=== PATIENT | female | born 1965 | race Caucasian/White ===

== ENCOUNTER → 2017-05-15 12:19 | Outpatient (CLI) | payer OTHER, SELFPAY ==
[2017-05-15 12:40] LABS: Basophils # 0.1 K/mm3 (0-0.2); Basophils % 0.4 % (0.1-2.0); Eosinophils # 0.2 K/mm3 (0.0-0.4); Eosinophils % 1.2 % (0.1-12.0); Hematocrit 32.6 % (37.0-47.0); Lymphocytes # 1.9 K/mm3 (0.7-4.5); Lymphocytes % 13.8 K/mm3 (10-50); Mean Corpuscular HGB Conc 30.8 g/dL (31.8-35.4); Mean Corpuscular Hemoglobin 24.9 pg (27.0-31.2); Mean Corpuscular Volume 80.7 fl (81-99); Mean Platelet Volume 6.8 fl (7.4-10.4); Monocytes # 0.6 K/mm3 (0.1-1.0); Monocytes % 4.3 % (1.7-9.3); Neutrophils % 80.3 % (37.0-80.0); Platelet Count 349 K/mm3 (142-424); Red Blood Count 4.04 M/mm3 (4.20-5.40); Red Cell Distribution Width 17.2 % (11.5-17.5); White Blood Count 13.7 K/mm3 (4.8-10.8)
--- NOTE | 2017-05-15 12:46 | XR_ITS ---
XR chest 2V HISTORY: ITS.REASON: SMOKER, HTN ORDERING PHYSICIAN: Jefferson Blackburn MD PATIENT AGE: 52 years COMPARISON: 10/24/2015 FINDINGS: There has been prior median sternotomy. Mild patient rotation. No lobar consolidation or collapse. Normal heart size. No acute bony findings. IMPRESSION: Prior CABG, no change with no acute finding
[2017-05-15 14:03] LABS: Anion Gap 15.6 mEq/L (5-15); Blood Urea Nitrogen 26 mg/dL (7-18); Carbon Dioxide 23 mmol/L (21.0-32.0); Chloride 102 mmol/L (98-107); Creatinine,Serum 1.27 mg/dL (0.55-1.02); Estimated Glomerular Filt Rate 45 ml/min (>60); GFR (African American) 54 ML/MIN (>60); Glucose 222 mg/dL (74-106); Potassium 4.6 mmoL/L (3.5-5.1); Sodium 136 mmol/L (136-145)
== END ==
PROVIDERS: PCP Emergency Medicine; Visit Provider Orthopaedic Surgery
DX: M86.9 Osteomyelitis, unspecified (principal); Z01.818 Encounter for other preprocedural examination
CPT/HCPCS: 36415; 71046; 80048; 85025; 93005

== ENCOUNTER 2017-05-20 11:01 | Inpatient (IN) | payer OTHER, SELFPAY ==
[2017-05-15 13:08] VITALS: BMI 40.2
[2017-05-20] VITALS (21 sets, daily range): BP systolic 100–159; BP diastolic 42–87; PULSE 75–111; RESP 15–22; TEMP 36.7–43; O2SAT 90–100; BMI 49.9
[2017-05-20 11:27] LABS: Urine Pregnancy, HCG Qual. Negative (Negative)
[2017-05-20 12:14] LABS: POC Glucose,Bedside 79 mg/dL
--- NOTE | 2017-05-20 12:49 | HMH.ANESCL ---
[facility] Anesthesia Checklist - Structural Data Admitted From: Home Planned Operative Procedure/s: l aka Consent for Planned Operative Procedure(s) Verified: Yes Verified Documents: Surgical Consent - Airway Assessment C-Spine Mobility Assessed: Yes TMJ Mobility Assessed: Yes Dentition: Poor Dentition - Neurological Assessment Level of Consciousness: Awake, Alert Hx Seizures: No - Anesthesia Plan Anesthesia Risk discussed: Yes Anesthesia Plan: Verified ASA Class: IV Anesthesia Type: General [facility] Anesthesia HX I have reviewed the patient's past medical history: Yes Medical History: Reports:: Chronic Obstructive Pulmonary Disease (COPD), Coronary Artery Disease, Diabetes Mellitus Type 2 (IDDM), Hyperlipidemia, Hypertension, MRSA, Myocardial Infarction, Renal Disease, Renal Insufficiency, Valvular Heart Disease Denies:: Cancer, Diabetes Mellitus Type 1, Internal Pacemaker, Seizures Other Medical History: Denies: Blood Transfusion Reaction Laterality Cases: Bilateral: Other Other Surgeries: Yes: Angioplasty, Coronary Stent, Other. No: Pacemaker Amputation: Yes (1/2 foot) Fractures: No Comment: cabg 2011, stents x 2 4 months ago. cleared for surgery by Dr Henry *Family Hx:: Stroke, Hypertension, Diabetes, Cancer, Kidney Disease, Anemia, Bleeding Disorder
--- NOTE | 2017-05-20 12:52 | P.PN_ITS ---
[facility] Anesthesia Checklist - Structural Data Admitted From: Home Planned Operative Procedure/s: l aka Consent for Planned Operative Procedure(s) Verified: Yes Verified Documents: Surgical Consent - Airway Assessment C-Spine Mobility Assessed: Yes TMJ Mobility Assessed: Yes Dentition: Poor Dentition - Neurological Assessment Level of Consciousness: Awake, Alert Hx Seizures: No - Anesthesia Plan Anesthesia Risk discussed: Yes Anesthesia Plan: Verified ASA Class: IV Anesthesia Type: General [facility] Anesthesia HX I have reviewed the patient's past medical history: Yes Medical History: Reports:: Chronic Obstructive Pulmonary Disease (COPD), Coronary Artery Disease, Diabetes Mellitus Type 2 (IDDM), Hyperlipidemia, Hypertension, MRSA, Myocardial Infarction, Renal Disease, Renal Insufficiency, Valvular Heart Disease Denies:: Cancer, Diabetes Mellitus Type 1, Internal Pacemaker, Seizures Other Medical History: Denies: Blood Transfusion Reaction Laterality Cases: Bilateral: Other Other Surgeries: Yes: Angioplasty, Coronary Stent, Other. No: Pacemaker Amputation: Yes (1/2 foot) Fractures: No Comment: cabg 2011, stents x 2 4 months ago. cleared for surgery by Dr Henry *Family Hx:: Stroke, Hypertension, Diabetes, Cancer, Kidney Disease, Anemia, Bleeding Disorder
--- NOTE | 2017-05-20 16:45 | HMH.ANESI ---
[facility] Anesthesia Record Part I Intake, IV Amount: 1,000 Estimated blood loss (mL): 400 Urine output (mL): 200 Blood Products used (#): none Blood Pressure: 112/66 SaO2: 90 Pulse Rate: 111 Respiratory Rate: 18 Temperature: 98.7 F Patient is:: Awake, Stable Stable to PACU at:: 16:45
--- NOTE | 2017-05-20 16:47 | P.PN_ITS ---
[facility] Anesthesia Record Part II Discharge Time: 17:15 Destination: Medical Surgical Department PACU nurse assessment reviewed?: Yes Patient Condition:: Good Anesthesia Complications:: None
--- NOTE | 2017-05-20 18:23 | PC.NURSE ---
verified start of HIGH SCHOOL COMBINATION TEACHER pump with Ana Maria Pulido RN
--- NOTE | 2017-05-20 19:13 | PC.NURSE ---
Pt c/o pain at 7 afterr 1 hour on WINDOW SHADE RING COVERER pump, Peewee stated to leave WINDOW SHADE RING COVERER at current rate and reassess later and add PO pain medicine
--- NOTE | 2017-05-20 23:29 | PC.NURSE ---
Dr Vides paged r/t pt increase in pain with no relief of ICE HOCKEY COACH, oral pain medication or IV toradol. had recently called this nurse @ 2019 to check on pt and told of pt increase in pain and gave order for 30 mg toradol IVP once, Peewee told of this conversation with and stated he doesnt know much about the pt to paged Dr. Vazquez. No new orders given at this time.
--- NOTE | 2017-05-20 23:34 | PC.NURSE ---
notified at 2224 of pt increase pain r/t surgical procedure early today. Vazquez gave order for boosting dose of morphine 2mg now via HABILITATION TRAINING SPECIALIST and increase dosage of morphine via HABILITATION TRAINING SPECIALIST to 1mg Q10min for pain. Read back and confirmed.
[2017-05-21] VITALS (12 sets, daily range): BP systolic 97–133; BP diastolic 45–73; PULSE 63–94; RESP 16–22; TEMP 36.6–37.3; O2SAT 92–98
--- NOTE | 2017-05-21 03:39 | PC.NURSE ---
Pt has c/o pain t/o the shift with internet of sleep in-between. Since increasing MACHINE ICER rate per MD order pt states the pain is better. Pt is very restless and constanting moving up and down in the bed and moving the amputated lag, pt advise to take it easy and move it ASTOL. VSS. Pt concerned that she hasnt had to pee since surgery, advise pt that we will attempted to urinate before shift change. SCUD noted to LLE. Dressing noted to R knee, unable to visualize incision, no edema or bleeding noted, zachery wrap in place. BS hypoactive, LBM 05/19/17. Lung sounds clear t/o auscultation. A&Ox3. No acute distress noted. Will continue to monitor.
--- NOTE | 2017-05-21 05:12 | PC.NURSE ---
Pt got up to BSC x2 assistance and tolerated well. Urinated 150mL of clear yellow urine
--- NOTE | 2017-05-21 05:20 | PC.NURSE ---
24 cleared from JACQUARD LOOM FIXER this shift(s)
--- NOTE | 2017-05-21 06:50 | SUR.OPER ---
05/20/17-1316- pt c/o stomach pain upon entering OR. Pt states that pain happens when she doesn't drink .
--- NOTE | 2017-05-21 07:29 | P.CONPHA_ITS ---
[facility] Pharmacy VTE Monitoring - Patient Demographics Admission date: 05/20/17 Report Date: 05/21/17 Time: 07:29 Allergies/Adverse Reactions: Patient Allergies acetaminophen [From Darvocet-N] Allergy (Unknown, Verified 05/15/17 13:04) Vomiting amoxicillin [From AUGMENTIN] Allergy (Unknown, Verified 05/15/17 13:04) clavulanic acid [From AUGMENTIN] Allergy (Unknown, Verified 05/15/17 13:04) codeine [CODEINE] Allergy (Unknown, Verified 05/15/17 13:04) NA-NAUSEA/VOMITING erythromycin base [ERYTHROMYCIN BASE] Allergy (Unknown, Verified 05/15/17 13:04) Vomiting Penicillins [PENICILLINS] Allergy (Unknown, Verified 05/15/17 13:04) Hives, Vomiting propoxyphene [From Darvocet-N] Allergy (Unknown, Verified 05/15/17 13:04) Vomiting CEPHALOSPORINS Allergy (Unknown, Uncoded 05/15/17 11:48) Anaphylaxis shock Height: 1.57 m Weight: 123.916 kg - VTE Risk Was VTE Risk Assessment Performed: Yes VTE Risk Level: Low Risk Clinical Trial Participant: No - Prophylaxis VTE Prophylaxis Ordered?: Yes Types of VTE Prophylaxis: TEDS Knee High
--- NOTE | 2017-05-21 08:58 | PC.NURSE ---
REPORT GIVEN TO Dank BRO RN
--- NOTE | 2017-05-21 09:45 | HMH.PHACONS ---
- Pharmacy Consult Date: 05/21/17 Time: 09:45 Referring provider: DR. YEH Reason for Consult:: VANCOMYCIN DOSING Allergies and ADEs:: Allergies Allergy/AdvReac Type Severity Reaction Status Date / Time acetaminophen Allergy Unknown Vomiting Verified 05/15/17 13:04 [From Darvocet-N] amoxicillin [From AUGMENTIN] Allergy Unknown Verified 05/15/17 13:04 clavulanic acid Allergy Unknown Verified 05/15/17 13:04 [From AUGMENTIN] codeine [CODEINE] Allergy Unknown NA-NAUSEA/V Verified 05/15/17 13:04 OMITING erythromycin base Allergy Unknown Vomiting Verified 05/15/17 13:04 [ERYTHROMYCIN BASE] Penicillins [PENICILLINS] Allergy Unknown Hives, Verified 05/15/17 13:04 Vomiting propoxyphene Allergy Unknown Vomiting Verified 05/15/17 13:04 [From Darvocet-N] CEPHALOSPORINS Allergy Unknown Anaphylaxis Uncoded 05/15/17 11:48 shock Home Medications:: Home Medications Medication Instructions Recorded Confirmed Type aspirin 81 mg tablet,delayed 81 mg PO DAILY 04/05/17 05/21/17 History release clopidogrel 75 mg tablet 75 mg PO DAILY 04/05/17 05/21/17 History digoxin 125 mcg tablet 125 mcg PO DAILY 04/05/17 05/21/17 History furosemide 40 mg tablet 40 mg PO DAILY 04/05/17 05/21/17 History insulin glargine (U-100) 100 See Label Instructions SUB-Q QDAY 04/05/17 05/20/17 History unit/mL (3 mL) subcutaneous pen insulin lispro (U-100) 100 unit/mL See Label Instructions SUB-Q BID 04/05/17 05/20/17 History subcutaneous solution ml lisinopril 10 mg tablet 10 mg PO DAILY 04/05/17 05/21/17 History metoprolol tartrate 25 mg tablet 25 mg PO BID 04/05/17 05/20/17 History Gabapentin [Neurontin 600mg 600 mg PO TID 05/21/17 05/21/17 History tablet] Height: 1.57 m Weight: 123.916 kg Laboratory Results:: Laboratory Results - last 24 hr 05/20/17 11:12: Urine HCG, Qual Negative 05/20/17 11:32: POC Glucose 79 Medical History: Reports:: Chronic Obstructive Pulmonary Disease (COPD), Coronary Artery Disease, Diabetes Mellitus Type 2 (IDDM), Hyperlipidemia, Hypertension, MRSA, Myocardial Infarction, Renal Disease, Renal Insufficiency, Valvular Heart Disease Denies:: Cancer, Diabetes Mellitus Type 1, Internal Pacemaker, Seizures Assessment and Plan - Assessment and plan all Dx Assessment and Plan for all problems:: BASED ON PATIENT'S FACTORS, RECOMMEND STARTING WITH VANCOMYCIN 2250 MG Q24H AT THIS TIME. PHARMACY WILL FOLLOW DAILY AND ADJUST APPROPRIATE. BETTY SINGH, ISIDRAD
--- NOTE | 2017-05-21 10:20 | PC.NURSE ---
dr coburn contacted at this time. i advised md that pt reports she does achs fingersticks and insulin. okays to change to achs. also asks to order a consult to pt's pcp and states if pt does not have a pcp within the network at [facility], to ask the service doctor.
[2017-05-21 11:26] LABS: POC Glucose,Bedside 267 mg/dL
[2017-05-21 11:26] LABS: POC Glucose,Bedside 331 mg/dL
[2017-05-21 12:26] LABS: POC Glucose,Bedside 266 mg/dL
--- NOTE | 2017-05-21 13:22 | P.OP_ITS ---
Date of procedure: 05/20/17 Pre-op Diagnosis:: Right lower extremity chronic infection Diabetes mellitus peripheral vascular disease Obesity Post-op diagnosis:: same Procedure performed:: Below-knee amputation right lower extremity Surgeon:: Jefferson Blackburn MD CARD GRINDER HELPER:: Luis Conroy Anesthesia: GETA Estimated blood loss (mL): 350 Operative findings:: See operative note Operative note:: The patient was taken to the operating room and placed in the supine position and given a general anesthetic. The infected foot and ankle was wrapped with Ioban and sealed. The right extremity was prepped chlorhexidine. Limb was exsanguinated and a tourniquet inflated. This was a thigh tourniquet and it was inflated to 325 torr. A Navarrete type incision was planned and drawn on the limb to allow bone transection approximate 10 cm below the tibial tubercle. The skin was incised anteriorly and bleeding arrested with electrocautery. As we encountered larger vessels, these were tied with 2-0 silk ligatures. As copious bleeding was encountered, and as the nursing staff reported a tourniquet issue, we deflated the tourniquet, re-exsanguinated the limb, reinflated the tourniquet to 350 torr, and using a different side of the tourniquet dual inflation console, reinflated the tourniquet. We continued with the incisions and hemostasis but still encountered more copious bleeding than expected. Note is made that the patient had been on Plavix but did indeed report she had been off for some 6 days. We suspected the tourniquet was in fact acting more as a venous tourniquet and thus deflated it and proceeded without tourniquet. We encountered no more bleeding and with the tourniquet itself inflated. We encountered the anterior and posterior tibial vessels including arteries and veins, the saphenous vein, the peroneals, and tied and ligated vessels as encountered. This achieved excellent hemostasis. We transected the tibia with a Gigli saw and then contoured it with an oscillating saw. The fibula was transected using an oscillating saw with soft tissue retraction and beveled. It was transected approximately 2 cm above the distal tibia. All sharp edges were rounded. We then removed a portion of the soleus muscle to debulk the posterior flap. We performed irrigation and also utilize a dilute iodine solution for minutes as the nursing staff reported they had not prepped over the Ioban. New drapes were laid down and closure begun. The gastrocnemius complex was sutured to the anterior periosteum using #1 Vicryl [id number] sutures. We completed the closure laterally and medially fashion the fascia muscle the muscle using similar technique. 2-0 Vicryl was used for the subcutaneous tissue and a combination of 2-0 nylon sutures and molina used for the skin. We deliberately did not contour dogears so as not to compromise the skin with her peripheral vascular disease. We applied dressings, and follow this with an elastic bandage. The patient was then awakened and transported to the recovery room in satisfactory condition. Condition: stable Disposition: PACU Specimens:: Lower extremity Complications:: None
--- NOTE | 2017-05-21 13:30 | HMH.ORTHPN ---
Subjective Date: 05/21/17 Time: 09:24 Principal diagnosis: Status post right BKA, POD #1 Interval history: Patient underwent right BKA yesterday. She initially had some pain control issues but was finally satisfactory control with increase in MOLD SWABBER dosage, use of morphine injection booster dose, and use of ketorolac IV. Today, her vital signs are stable she is afebrile. Pulse is 84 blood pressure stable. Her dressing is clean and dry with no evidence of bleed through. No evident complications noted. PN: Obj Ex Vital signs: Temp Pulse Resp BP Pulse Ox 97.8 F 84 16 97/63 94 L 05/21/17 12:00 05/21/17 12:00 05/21/17 12:00 05/21/17 12:00 05/21/17 12:00 Narrative: PLAN--up with physical therapy today. Transition to oral medications. Patient will need placement at a rehab center more than likely.
--- NOTE | 2017-05-21 13:33 | P.PN_ITS ---
Subjective Date: 05/21/17 Time: 09:24 Principal diagnosis: Status post right BKA, POD #1 Interval history: Patient underwent right BKA yesterday. She initially had some pain control issues but was finally satisfactory control with increase in ELECTRONIC DIE MAKER dosage, use of morphine injection booster dose, and use of ketorolac IV. Today, her vital signs are stable she is afebrile. Pulse is 84 blood pressure stable. Her dressing is clean and dry with no evidence of bleed through. No evident complications noted. PN: Obj Ex Vital signs: Temp Pulse Resp BP Pulse Ox 97.8 F 84 16 97/63 94 L 05/21/17 12:00 05/21/17 12:00 05/21/17 12:00 05/21/17 12:00 05/21/17 12:00 Narrative: PLAN--up with physical therapy today. Transition to oral medications. Patient will need placement at a rehab center more than likely.
--- NOTE | 2017-05-21 17:05 | SW/DCPLANNER ---
Spoke with patient this evening regarding discharge plans. Patient stated that she lives at home with her significant other whom will help care for patient once she returns back home. Patient appears to be confused about whether or not if she wants home health due to her S.O. working an evening shift and being home during the day. I explained to the patient the benefits of using home health in her situation. Patient then agreed to home health but would need to discuss with them regarding a time to come out. I explained to patient that I will assist in setting up home health but home health would then set up time with patient. Patient stated that she is fine to discharge home to take care of herself. Patient stated that she does have a wheelchair at home. I will follow up with this patient in the AM.
--- NOTE | 2017-05-21 17:39 | PC.NURSE ---
PT FALLS ON FLOOR TODAY AT 1340. NOISE HEARD FROM WASHBURN. IMMEDIATELY RAN INTO THE ROOM TO FIND PT ON THE FLOOR ON BUTTOCKS. PT REPORTS THAT HER CELLPHONE WAS FALLING OF THE BEDSIDE TABLE AND SHE LEANED TO CATCH IT FROM FALLING AND SHE SLID IN THE CHAIR STRAIGHT TO THE FLOOR. DENIES ANY INJURIES. NO NEW FINDINGS NOTED ON ASSESSMENT. VSS. PT DENIES AND NEW PAINS. PT DISLODGES TWO IVs THIS SHIFT. EDUCATED TO BE CAREFUL BECAUSE IT IS DANGEROUS TO HAVE IVs TAKEN OUT/PULLED OUT.
--- NOTE | 2017-05-21 19:42 | PC.NURSE ---
pt uses 13.8ml of morphine via optometrist owner this shift
[2017-05-22] VITALS (15 sets, daily range): BP systolic 90–115; BP diastolic 44–60; PULSE 75–99; RESP 16–18; TEMP 36.6–38.8; O2SAT 90–98; BMI 50.3
[2017-05-22 01:05] LABS: POC Glucose,Bedside 229 mg/dL
[2017-05-22 01:05] LABS: POC Glucose,Bedside 219 mg/dL
--- NOTE | 2017-05-22 02:28 | PC.NURSE ---
RN NOTIFIED AROUND 0130 OF ORAL TEMP NOTED AT 101.8. MD RESUME WRITER FOR DR. STEEN PAGED AT 0153. DR. STEEN RESPONDED AT 0156, NOTIFIED OF TEMP OF 101.8, ALL OTHER VS WNL. MD INSTRUCTED RN TO PLACE INCENTIVE SPIROMETER AT BEDSIDE AND USE Q1H WHILE AWAKE, ORDER CBC AND BMP FOR 0600 IN THE MORNING.
--- NOTE | 2017-05-22 02:33 | PC.NURSE ---
AROUND 2099 OPERATIONS CONSULTANT CALLED TO ELEN POWERS CHIEF PROCUREMENT OFFICER FOR [facility]ERY, OPERATIONS CONSULTANT STATED DR. GOTTLIEB IS CHIEF PROCUREMENT OFFICER FOR HIMSELF AND IS IN THE ER, WOULD YOU LIKE ME TO TRANSFER YOU TO THE ED. RN ACCEPTED OFFER TO TRANSFER TO ED, ONCE MD CONTACTED, STATED LET ME CALL YOU BACK. NO RESPONSE, AROUND 2234 RN CALLED ED AGAIN TO NOTIFY MD OF PREMIX CONCRETE BATCHER INTOLERANCE AND C/O NOT PEEING VERY MUCH . MD WAS NOTIFIED OF FALL ON DAY SHIFT AND MAKING INAPPROPRIATE CONVERSATION. ON THIS SENIOR RESEARCH MANAGER AROUND 1999, PT A&OX3, NO S/S OF RESPIRATORY DEPRESSION, NO INAPPROPRIATE STATEMENTS MADE THUS FAR AND NOTIFIES STAFF APPROPRIATELY. PREMIX CONCRETE BATCHER PUMP WAS CLEARED PER DAY SHIFT AND AT THIS TIME, PT HAS NOT USED ANY SINCE LAST CLEARED. DAY SHIFT RN REPORTED CLEARING AROUND 13MG. MD ORDERED PREMIX CONCRETE BATCHER MORPHINE DOSE TO BE DECREASED TO 0.5 MG Q1O MIN WITH A LOCKOUT AT 10 MG Q4H. MD ALSO NOTIFIED OF C/O NOT PEEING VERY MUCH . 400ML UOP WITH A ONE UNMEASURED VOID NOTED, REPORTS HX OF CHF. LUNG SOUNDS CLEAR T/O AUSCULTATION. LOWER EXTREMITY SWOLLEN BUT NONPITTING. BLADDER DID NOT FEEL DISTENDED PER PALPATION. MD ORDERED 500ML LR IVF BOLUS AT A RATE OF 250 ML/HR.
--- NOTE | 2017-05-22 02:49 | PC.NURSE ---
Addendum entered by Margot Lorenz RN 05/22/17 04:07: DID MAKE A FEW INAPPROPRIATE STATEMENTS THIS SHIFT BUT SOON PT WOULD MAKE INAPPROPRIATE STATEMENT, PT WOULD STATE DON'T LISTEN TO ME. I AM TALKING OUT OF MY HEAD. BUT REMAINED A&OX3 T/O SHIFT. Original Note: RESTED WELL MAJORITY OF SHIFT. PT WOULD WAKE UP OCCASSIONALLY MOANING, STAFF REMINDED PT OF OVERHAULER HELPER PUMP USE, FOLLOWING USE OF OVERHAULER HELPER, PT NOTED SLEEPING AGAIN. INCENTIVE SPIROMETER PLACED AT BEDSIDE. DRESSING ON RLE NOTED CDI. VSS. WILL CONTINUE TO MONITOR.
--- NOTE | 2017-05-22 04:06 | PC.NURSE ---
CLEARED FITNESS COORDINATOR PUMP AT THIS TIME, 2.5MG USED THIS SHIFT.
[2017-05-22 06:47] LABS: POC Glucose,Bedside 215 mg/dL
[2017-05-22 06:58] LABS: Basophils % 0.4 % (0.1-2.0); Eosinophils # 0.3 K/mm3 (0.0-0.4); Eosinophils % 2.5 % (0.1-12.0); Lymphocytes # 1.5 K/mm3 (0.7-4.5); Lymphocytes % 13.6 K/mm3 (10-50); Mean Corpuscular HGB Conc 31.6 g/dL (31.8-35.4); Mean Corpuscular Hemoglobin 25.5 pg (27.0-31.2); Mean Corpuscular Volume 80.6 fl (81-99); Mean Platelet Volume 7.2 fl (7.4-10.4); Monocytes # 0.5 K/mm3 (0.1-1.0); Monocytes % 4.3 % (1.7-9.3); Neutrophils # 8.8 K/mm3 (1.8-7.8); Neutrophils % 79.3 % (37.0-80.0); Platelet Count 368 K/mm3 (142-424); Red Blood Count 2.87 M/mm3 (4.20-5.40); Red Cell Distribution Width 17.4 % (11.5-17.5); White Blood Count 11.1 K/mm3 (4.8-10.8)
[2017-05-22 07:04] LABS: Hematocrit 23.1 % (37.0-47.0); Hemoglobin 7.3 g/dL (12.2-16.2)
--- NOTE | 2017-05-22 08:02 | PC.NURSE ---
DR. STEEN NOTIFIED OF CRITICAL HEMOGLOBIN OF 7.3 AND HEMATOCRIT OF 23.1 AT 0710
[2017-05-22 08:23] LABS: Blood Urea Nitrogen 40 mg/dL (7-18); Carbon Dioxide 25 mmol/L (21.0-32.0); Chloride 96 mmol/L (98-107); Creatinine Clearance Estimated 22 mL/min (0-300); Creatinine,Serum 2.43 mg/dL (0.55-1.02); Estimated Glomerular Filt Rate 21 ml/min (>60); GFR (African American) 25 ML/MIN (>60); Glucose 193 mg/dL (74-106); Sodium 129 mmol/L (136-145)
--- NOTE | 2017-05-22 10:34 | HMH.ORTHPN ---
Subjective Date: 05/22/17 Time: 09:30 Principal diagnosis: Status post right BKA, POD #2 Interval history: Patient is sleeping but awakens easily. Complains of pain and right BKA stump. I reminded her to go ahead and use the WATER FILTRATION TECHNICIAN. Dressing is changed. Incision clean and essentially dry. No erythema cellulitis or other complications noted. Hemoglobin hematocrit this morning reflective of blood loss intraoperatively. Hematocrits approximately 23.7. Pulse is approximately 85 and blood pressure stable. Patient denies lightheadedness. Given this scenario, no clinical indications for transfusion at present. BMP evaluated. Potassium 5.0. Creatinine BUN are elevated. Will hold off on further use of Toradol due to her renal status. Case discussed with pharmacy and we will make a lateral move to Percocet versus Lortab for hopefully increased pain control. PN: Obj Ex Vital signs: Temp Pulse Resp BP Pulse Ox 97.8 F 89 18 90/46 92 L 05/22/17 08:00 05/22/17 10:00 05/22/17 10:00 05/22/17 10:00 05/22/17 10:00
--- NOTE | 2017-05-22 10:41 | P.PN_ITS ---
Subjective Date: 05/22/17 Time: 09:30 Principal diagnosis: Status post right BKA, POD #2 Interval history: Patient is sleeping but awakens easily. Complains of pain and right BKA stump. I reminded her to go ahead and use the CONSTRUCTION REPRESENTATIVE. Dressing is changed. Incision clean and essentially dry. No erythema cellulitis or other complications noted. Hemoglobin hematocrit this morning reflective of blood loss intraoperatively. Hematocrits approximately 23.7. Pulse is approximately 85 and blood pressure stable. Patient denies lightheadedness. Given this scenario , no clinical indications for transfusion at present. BMP evaluated. Potassium 5.0. Creatinine BUN are elevated. Will hold off on further use of Toradol due to her renal status. Case discussed with pharmacy and we will make a lateral move to Percocet versus Lortab for hopefully increased pain control. PN: Obj Ex Vital signs: Temp Pulse Resp BP Pulse Ox 97.8 F 89 18 90/46 92 L 05/22/17 08:00 05/22/17 10:00 05/22/17 10:00 05/22/17 10:00 05/22/17 10:00
--- NOTE | 2017-05-22 18:38 | PC.NURSE ---
PT HAS REPORTED PAIN OF 6-7 MOST OF THIS SHIFT, AT TIMES SHE WOULD BE SLEEPING. LOCK TENDER CHIEF OPERATOR PUMP, WELL PRN PAIN MEDICATION GIVEN THIS SHIFT. PT IS IN BED, CALL LIGHT WITHIN REACH, WILL CONTINUE TO MONITOR.
--- NOTE | 2017-05-22 19:32 | PC.NURSE ---
Pt's DONOR SERVICES TECHNICIAN pump was cleared at end of shift, 9.5 doses administered.
[2017-05-23] VITALS (33 sets, daily range): BP systolic 80–136; BP diastolic 35–81; PULSE 64–86; RESP 18–22; TEMP 36.1–37.3; O2SAT 90–99
--- NOTE | 2017-05-23 05:24 | PC.NURSE ---
UPON ASSESSMENT OF PT, SHE WAS NOTE TO BE DIAPHORETIC. PT STATED SHE WAS HOT, GOWN AND BED LINENS WERE SOILED. IV LINE WAS LYING ON BED. BED LINENS WERE CHANGED AND NEW IV PLACED. BP WAS NOTED TO BE 115/54 AFTER REASSESSMENT OF BP, BP MED WAS HELD DUE TO BP OF 102/50. PT HAS SLEPT MOST OF SHIFT. CONTS TO C/O PAIN. WAS EDUCATED AND ENCOURAGE TO USE FIELD INSPECTOR PUMP, HAS DECLINED ADDITIONAL PAIN MEDICATION. PT HAD A TOTAL OF 4.5 MG OF MORPHINE PER FIELD INSPECTOR PUMP. PT HAS ALSO C/O ABD DISCOMFORT. PT HAS AMBULATED WITH ASSISTANCE TO [facility], TOTAL URINE OUTPUT AT THIS TIME IS 300ML. DRESSING IS INTACT RIGHT EXTREMITY, NO DRAINAGE NOTED. ENERGY CONSERVATION ENGINEER PER MAR, VSS AT THIS TIME. NO OTHER CONCERNS AT THIS TIME, WILL CONT TO MONITOR.
--- NOTE | 2017-05-23 07:48 | PC.NURSE ---
REPORT HAND OFF TO PHILLIP
[2017-05-23 09:38] LABS: Vancomycin,Trough 32.5 mcg/ml (10.0-20.0)
--- NOTE | 2017-05-23 10:40 | HMH.PHACONS ---
- Pharmacy Consult Date: 05/23/17 Time: 10:40 Referring provider: DR. YEH Reason for Consult:: VANCOMYCIN TROUGH AND DOSE CHANGE Allergies and ADEs:: Allergies Allergy/AdvReac Type Severity Reaction Status Date / Time acetaminophen Allergy Unknown Vomiting Verified 05/15/17 13:04 [From Darvocet-N] amoxicillin [From AUGMENTIN] Allergy Unknown Verified 05/15/17 13:04 clavulanic acid Allergy Unknown Verified 05/15/17 13:04 [From AUGMENTIN] codeine [CODEINE] Allergy Unknown NA-NAUSEA/V Verified 05/15/17 13:04 OMITING erythromycin base Allergy Unknown Vomiting Verified 05/15/17 13:04 [ERYTHROMYCIN BASE] Penicillins [PENICILLINS] Allergy Unknown Hives, Verified 05/15/17 13:04 Vomiting propoxyphene Allergy Unknown Vomiting Verified 05/15/17 13:04 [From Darvocet-N] CEPHALOSPORINS Allergy Unknown Anaphylaxis Uncoded 05/15/17 11:48 shock Home Medications:: Home Medications Medication Instructions Recorded Confirmed Type aspirin 81 mg tablet,delayed 81 mg PO DAILY 04/05/17 05/21/17 History release clopidogrel 75 mg tablet 75 mg PO DAILY 04/05/17 05/21/17 History digoxin 125 mcg tablet 125 mcg PO DAILY 04/05/17 05/21/17 History furosemide 40 mg tablet 40 mg PO DAILY 04/05/17 05/21/17 History insulin glargine (U-100) 100 See Label Instructions SUB-Q QDAY 04/05/17 05/20/17 History unit/mL (3 mL) subcutaneous pen insulin lispro (U-100) 100 unit/mL See Label Instructions SUB-Q BID 04/05/17 05/20/17 History subcutaneous solution ml lisinopril 10 mg tablet 10 mg PO DAILY 04/05/17 05/21/17 History metoprolol tartrate 25 mg tablet 25 mg PO BID 04/05/17 05/20/17 History Gabapentin [Neurontin 600mg 600 mg PO TID 05/21/17 05/21/17 History tablet] Height: 1.57 m Weight: 123.916 kg Laboratory Results:: Laboratory Results - last 24 hr 05/23/17 09:02: Vancomycin Trough 32.5 H Medical History: Reports:: Chronic Obstructive Pulmonary Disease (COPD), Coronary Artery Disease, Diabetes Mellitus Type 2 (IDDM), Hyperlipidemia, Hypertension, MRSA, Myocardial Infarction, Renal Disease, Renal Insufficiency, Valvular Heart Disease Denies:: Cancer, Diabetes Mellitus Type 1, Internal Pacemaker, Seizures Assessment and Plan - Assessment and plan all Dx Assessment and Plan for all problems:: BASED ON PATIENT'S VANCOMYCIN TROUGH LEVEL OF 32.5 MCG/ML THIS AM, RECOMMEND HOLDING DOSE UNTIL 2100 ON 05/24/17. WILL RESTART VANCOMYCIN 2000 MG Q36H AT THAT TIME. PHARMACY WILL FOLLOW DAILY AND ADJUST APPROPRIATE. BETTY SINGH, PHARMD
[2017-05-23 11:06] LABS: Basophils % 0.2 % (0.1-2.0); Eosinophils # 0.3 K/mm3 (0.0-0.4); Eosinophils % 2.8 % (0.1-12.0); Lymphocytes # 1.5 K/mm3 (0.7-4.5); Lymphocytes % 13.6 K/mm3 (10-50); Mean Corpuscular HGB Conc 31.1 g/dL (31.8-35.4); Mean Corpuscular Volume 80.4 fl (81-99); Mean Platelet Volume 7.5 fl (7.4-10.4); Monocytes # 0.6 K/mm3 (0.1-1.0); Monocytes % 5.4 % (1.7-9.3); Neutrophils # 8.7 K/mm3 (1.8-7.8); Platelet Count 337 K/mm3 (142-424); Red Blood Count 2.53 M/mm3 (4.20-5.40); Red Cell Distribution Width 17.4 % (11.5-17.5); White Blood Count 11.2 K/mm3 (4.8-10.8)
[2017-05-23 11:09] LABS: Hematocrit 20.3 % (37.0-47.0); Hemoglobin 6.3 g/dL (12.2-16.2)
--- NOTE | 2017-05-23 11:26 | HMH.ORTHPN ---
Subjective Date: 05/23/17 Time: 11:26 Principal diagnosis: Status post right BKA, POD #3 Interval history: Pt currently undergoing hygiene by NS. Hct 20.3%, down from yesterday. Na+ 129, K+ 5 and renal function decreased yesterday. Exam deferred at present. Will check later today. Pt reportedly having heavy menses. Plan--Transfuse one unit PRBC's. Use nasal O2 to increase oxygenation at amputation site. Appreciate Dr. Kelly's consulting on pt. Russell PN: Obj Ex Vital signs: Temp Pulse Resp BP Pulse Ox 98.0 F 85 20 101/50 90 L 05/23/17 10:00 05/23/17 10:00 05/23/17 10:00 05/23/17 10:00 05/23/17 10:00
--- NOTE | 2017-05-23 11:30 | P.PN_ITS ---
Subjective Date: 05/23/17 Time: 11:26 Principal diagnosis: Status post right BKA, POD #3 Interval history: Pt currently undergoing hygiene by NS. Hct 20.3%, down from yesterday. Na+ 129 , K+ 5 and renal function decreased yesterday. Exam deferred at present. Will check later today. Pt reportedly having heavy menses. Plan--Transfuse one unit PRBC's. Use nasal O2 to increase oxygenation at amputation site. Appreciate Dr. Kelly's consulting on pt. Russell PN: Obj Ex Vital signs: Temp Pulse Resp BP Pulse Ox 98.0 F 85 20 101/50 90 L 05/23/17 10:00 05/23/17 10:00 05/23/17 10:00 05/23/17 10:00 05/23/17 10:00
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
[2017-05-23 18:34] LABS: Hematocrit 23.6 % (37.0-47.0)
[2017-05-23 18:35] LABS: Hemoglobin 7.7 g/dL (12.2-16.2)
--- NOTE | 2017-05-23 18:44 | PC.NURSE ---
PATIENT IS RESTING IN BED AT THIS TIME. SHE HAS CONSISTENTLY C/O PAIN AT 6/10 ON RIGHT LOWER LEG WITH STOCKROOM CLERK IN USE. PATIENT RECEIVED 1 UNIT PRBC EARLIER IN THE SHIFT AND I JUST CALLED DR VAUGHAN WITH A CRITICAL H&H AND HE ORDERED TO TRANSFUSE ONE MORE UNIT AT THIS TIME. PATIENT STATES SHE ALSO STARTED HER PERIOD AND HAS A HEAVY FLOW WHICH MAY ADD TO THE ANEMIA. LUNGS ARE CTA. CALL LIGHT IS WITHIN REACH WILL CONTINUE TO MONITOR.
--- NOTE | 2017-05-23 18:49 | PC.NURSE ---
1400 CALLED LAB AND LEFT MESSAGE WITH CONCHITA THAT PATIENT WOULD NEED HER 1 HOUR POST TRANSFUSION H&H AT 1645. CALLED LAB AGAIN AT 1730 BECAUSE H&H NOT BEEN DRAWN. 1800 LAB AT BEDSIDE FOR POST H&H
--- NOTE | 2017-05-23 18:56 | PC.NURSE ---
DR VAUGHAN WAS CALLED FOR CRITICAL H&H SINCE DR GOTTLIEB IS FOLLOWING PATIENT FOR MEDICAL MANAGEMENT
--- NOTE | 2017-05-23 19:16 | PC.NURSE ---
REPORT GIVEN TO POLI PHAM RN
[2017-05-24] VITALS (8 sets, daily range): BP systolic 99–116; BP diastolic 47–58; PULSE 67–81; RESP 16–18; TEMP 36.7–37.1; O2SAT 90–95
[2017-05-24 00:47] LABS: Hemoglobin 8.8 g/dL (12.2-16.2)
--- NOTE | 2017-05-24 04:59 | PC.NURSE ---
PT WAS ADMIN UNIT 2 OF BLOOD. PT TOLERATED WELL. HGB THIS AM IS 8.8. PT HAS BEEN HYPOTENSIVE AT TIMES. PT HAS C/O PAIN MOST OF NIGHT. PO PAIN MEDICATION ADMIN AND PT WAS ENCOURAGE TO USE WEB SITE ADMINISTRATOR MORPHINE PUMP. DRESSING TO RLE IS INTACT, JEROME BANDAGE WAS REINFORCED. MEDS ADMIN PER JUN. NO OTHER CONCERNS AT THIS TIME. WILL CONT TO MONITOR.
--- NOTE | 2017-05-24 07:13 | PC.NURSE ---
pt had 4 mg total per morphine bar machine operator multiple spindle pump.
--- NOTE | 2017-05-24 07:13 | PC.NURSE ---
REPORT HAND OFF TO Jonah VARGAS
[2017-05-24 07:23] LABS: Anion Gap 14.6 mEq/L (5-15); Blood Urea Nitrogen 52 mg/dL (7-18); Carbon Dioxide 23 mmol/L (21.0-32.0); Chloride 98 mmol/L (98-107); Creatinine Clearance Estimated 21 mL/min (0-300); Creatinine,Serum 2.44 mg/dL (0.55-1.02); Estimated Glomerular Filt Rate 21 ml/min (>60); GFR (African American) 25 ML/MIN (>60); Glucose 158 mg/dL (74-106); Potassium 5.6 mmoL/L (3.5-5.1); Sodium 130 mmol/L (136-145)
--- NOTE | 2017-05-24 07:32 | PC.NURSE ---
RECEIVED REPORT FROM POLI PHAM RN
--- NOTE | 2017-05-24 09:00 | P.PN_ITS ---
Internal Medicine - PN: Subj *Date: 05/24/17 *Time: 08:59 Exam Vital signs and Labs for Last 24 Hours: Temp Pulse Resp BP Pulse Ox 98.7 F 81 16 115/52 90 L 05/24/17 07:46 05/24/17 08:23 05/24/17 07:46 05/24/17 07:46 05/24/17 07:46 Laboratory Results - last 24 hr 05/23/17 09:02: Vancomycin Trough 32.5 H 05/23/17 10:41: WBC 11.2 H, RBC 2.53 L, Hgb 6.3 L*, Hct 20.3 L*, MCV 80.4 L, MCH 25.0 L, MCHC 31.1 L, RDW 17.4, Plt Count 337, MPV 7.5, Neut % (Auto) 78.0, Lymph % (Auto) 13.6, [place] % (Auto) 5.4, Eos % (Auto) 2.8, Baso % (Auto) 0.2, Neut # (Auto) 8.7 H, Lymph # (Auto) 1.5, [place] # (Auto) 0.6, Eos # (Auto) 0.3, Baso # (Auto) 0.0 05/23/17 12:18: Blood Type A Positive, Antibody Screen Negative, Crossmatch (AHG ) See Detail 05/23/17 12:20: Blood Type Confirm A Positive 05/23/17 18:10: Hgb 7.7 L* D, Hct 23.6 L* 05/24/17 00:25: Hgb 8.8 L D, Hct 26.0 L 05/24/17 06:30: Sodium 130 L, Potassium 5.6 H, Chloride 98, Carbon Dioxide 23, Anion Gap 14.6, BUN 52 H D, Creatinine 2.44 H, Estimated Creat Clear 21, Estimated GFR 21 L, Est GFR ( Amer) 25 L, Glucose 158 H I & O for Last 24 hours: Intake & Output 05/21/17 05/22/17 05/23/17 05/24/17 11:59 11:59 11:59 11:59 Intake Total 3673 / 3673 2205 / 2205 2822 / 2822 4463 / 4463 Output Total 200 / 200 1700 / 1700 2100 / 2100 2700 / 2700 Balance 3473 / 3473 505 / 505 722 / 722 1763 / 1763 Weight 273 lb 3 oz 273 lb 3.008 oz 273 lb 3.008 oz - Constitutional no acute distress - *Routine HEENT Exam Head: Present: normocephalic Eye: Present: PERRL ENT: Present: mucous membranes moist - *Routine Neck Exam Present: supple, full ROM - *Routine Respiratory Exam Present: CTA bilaterally - *Routine Cardiovascular Exam Present: RRR - *Routine Abdominal Exam Present: soft, normoactive bowel sounds - *Routine Neurological Exam Present: alert, oriented X3, CN II-XII intact - Routine Psychiatric Exam Present: normal affect, normal thought process - Detailed Skin Exam leg Body image: 1 - bka dressing in place
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
--- NOTE | 2017-05-24 09:41 | PC.NURSE ---
AFTER SPEAKING WITH PATIENT PLEASE NOTE SHE WILL NEED A BEDSIDE COMMODE AT HOME DUE TO THE DISTANCE TO HER BATHROOM AND DIFFICULTY WITH MOBILITY FROM RECENT BKA.
--- NOTE | 2017-05-24 11:08 | SW/DCPLANNER ---
Addendum entered by Cary Quintanilla 05/24/17 13:57: [facility] will begin services for this patient tomorrow 05/25/17. Original Note: Received order for patient to have bedside commode and home health services. Patient information has been faxed to [facility]. I have spoke with Monet to confirm fax was received and she has confirmed that BSC will be delivered to this patient this afternoon. Patient information has also been faxed to [facility]. Elvi at [facility] has confirmed that faxed was received and nurse will review and call me back. Patient is discharging home this afternoon.
[2017-06-06 14:44] LABS: POC Glucose,Bedside 332 mg/dL (70-110)
[2017-06-06 14:51] LABS: POC Glucose,Bedside 242 mg/dL (70-110)
[2017-06-06 14:52] LABS: POC Glucose,Bedside 225 mg/dL (70-110)
[2017-06-06 14:54] LABS: POC Glucose,Bedside 212 mg/dL (70-110)
[2017-06-06 14:55] LABS: POC Glucose,Bedside 170 mg/dL (70-110)
[2017-06-06 14:55] LABS: POC Glucose,Bedside 245 mg/dL (70-110)
[2017-06-06 14:56] LABS: POC Glucose,Bedside 178 mg/dL (70-110)
[2017-06-06 14:56] LABS: POC Glucose,Bedside 159 mg/dL (70-110)
[2017-06-06 14:56] LABS: POC Glucose,Bedside 223 mg/dL (70-110)
== END 2017-05-24 17:05 | disposition home health service (06) | DRG 617 ==
PROVIDERS: Emergency Medicine; Family Medicine; Admitting Provider Orthopaedic Surgery; PCP Nurse Practitioner Family; Visit Provider Orthopaedic Surgery
PROC: 0Y6H0Z2 Detachment at Right Lower Leg, Mid, Open Approach (ICD-10-PCS; CPT 27880; principal; 2017-05-20 12:15)
DX: E11.622 Type 2 diabetes mellitus with other skin ulcer (principal); L97.319 Non-pressure chronic ulcer of right ankle with unspecified severity; E11.51 Type 2 diabetes mellitus with diabetic peripheral angiopathy without gangrene; Z72.0 Tobacco use; Z79.4 Long term (current) use of insulin
CPT/HCPCS: 27880; 36415; 80048; 80202; 81025; 82962; 85014; 85018; 85025; 86850; 88307; 88311; 94640; 94761; 96374; J2270; J2405; J3370; P9016

== ENCOUNTER 2017-05-28 14:22 | Observation (INO) | payer OTHER, SELFPAY ==
[2017-05-28 14:27] VITALS: BP 149/70; PULSE 64; RESP 18; TEMP 36.8; O2SAT 97; BMI 41.1
--- NOTE | 2017-05-28 14:40 | HMH.EDGENADL ---
ED Disposition Clinical Impression: Wound dehiscence Cellulitis Qualifiers: Site of cellulitis: extremity Site of cellulitis of extremity: lower extremity Laterality: right Qualified Code(s): L03.115 - Cellulitis of right lower limb Back contusion Qualifiers: Encounter type: initial encounter Laterality: unspecified laterality Qualified Code(s): S20.229A - Contusion of unspecified back wall of thorax, initial encounter Fall Qualifiers: Encounter type: initial encounter Qualified Code(s): W19.XXXA - Unspecified fall, initial encounter Disposition: Still a Patient Condition on Discharge: Good Instructions: DI for Low Back Pain Referrals: Saroj Saldana APRN [Primary Care Provider] - - Critical Care Critical Care Time: No Attestation: On 05/28/17, the high probability of a clinically significant, sudden or life threatening deterioration of the following system(s) required my full and direct attention, intervention and personal management. The time I documented below is in addition to time spent performing reported procedures but includes the following listed in this critical care notation. Medical Decision Making Vital Signs: 05/28/17 14:27 Temperature 98.2 F Temperature Source Oral Pulse Rate [Right Radial] 64 Respiratory Rate 18 Blood Pressure [Right Arm] 149/70 Blood Pressure Mean [Right Arm] 96 Blood Pressure Source [Right Arm] Automatic Cuff Blood Pressure Position [Right Arm] Sitting 02 Sat by Pulse Oximetry 97 Oxygen Delivery Method Room Air - Lab Data Lab results reviewed: Yes: I reviewed the patient's lab results. Lab Results 05/28/17 15:30: WBC 15.6 H, RBC 3.61 L, Hgb 9.2 L, Hct 29.5 L, MCV 81.7, MCH 25.4 L, MCHC 31.1 L, RDW 16.5, Plt Count 539 H, MPV 7.5, Neut % (Auto) 75.1, Lymph % (Auto) 16.1, [place] % (Auto) 5.2, Eos % (Auto) 3.2, Baso % (Auto) 0.5, Neut # (Auto) 11.7 H, Lymph # (Auto) 2.5, [place] # (Auto) 0.8, Eos # (Auto) 0.5 H, Baso # (Auto) 0.1, Total Counted 100, Neutrophils % (Manual) 77 H, Lymphocytes % (Manual) 17, Monocytes % (Manual) 6, Platelet Estimate Slight increase, Hypochromasia 1+ 05/28/17 15:30: Sodium 134 L, Potassium 5.7 H, Chloride 100, Carbon Dioxide 27, Anion Gap 12.7, BUN 34 H, Creatinine 2.22 H, Estimated Creat Clear 49, Estimated GFR 23 L, Est GFR ( Amer) 28 L, Glucose 170 H, Calcium 8.1 L, Total Bilirubin 0.2, AST 16, ALT 23, Alkaline Phosphatase 269 H, Total Protein 7.8, Albumin 2.4 L, Globulin 5.4 H, Albumin/Globulin Ratio 0.4 L BUN and creatinine have improved since 05/24. Potassium is stable. Hemoglobin has improved. Result diagrams: 05/28/17 15:30 05/28/17 15:30 Orders (Tests/Meds): ED MEDICATIONS Discontinued Medications Generic Name Dose Route Start Last Admin Trade Name Freq PRN Reason Stop Dose Admin Morphine Sulfate 4 mg 05/28/17 15:16 05/28/17 15:47 Morphine 4mg/Ml Syringe IV 05/28/17 15:17 4 mg ONCE ONE Administration Ondansetron HCl 4 mg 05/28/17 15:16 05/28/17 15:47 Zofran 4mg/2ml Vial IV 05/28/17 15:17 4 mg ONCE ONE Administration ORDERS Category Date Time Status XR lumbar spine min 4V Stat Exams 05/28/17 15:14 Taken - Guille Inquiry Pt receiving controlled substance: Yes Guille was queried for this patient: Yes Reference #:: [id number] Risks and benefits of using a controlled substance: were not discussed with pt by me (on opiates at home) Comment: 24 rxs. last rx 30 percocet on 05/24. Medical Decision Making Narrative: 4:25 PM: I have discussed the case with Dr. Kelly who agrees to admit the patient to the hospital. We discussed the patient's clinical information, including history, exam, laboratory and radiology results and ED course. Per hospital procedure, I will write temporary bridge inpatient orders on the patient. Specific orders requested by the admitting physician: Tammi Bourgeois, consult Dr. Blackburn General Adult HPI - General Chief complaint: Back Pain/Injury Stated c
--- NOTE | 2017-05-28 15:14 | XR_ITS ---
EXAM: XR lumbar spine min 4V HISTORY: Low back pain following injury ITS.REASON: fell ORDERING PHYSICIAN: Navneet Pace MD PATIENT AGE: 52 years COMPARISON: None FINDINGS: Normal alignment. No fracture or dislocation. Mild degenerative disc disease T12-L1 and L5-S1. Mild facet arthritic changes L5-S1. IMPRESSION: No acute finding. Mild lumbar spondylosis
[2017-05-28 15:47] LABS: Basophils # 0.1 K/mm3 (0-0.2); Basophils % 0.5 % (0.1-2.0); Eosinophils # 0.5 K/mm3 (0.0-0.4); Eosinophils % 3.2 % (0.1-12.0); Hematocrit 29.5 % (37.0-47.0); Hemoglobin 9.2 g/dL (12.2-16.2); Lymphocytes # 2.5 K/mm3 (0.7-4.5); Lymphocytes % 16.1 K/mm3 (10-50); Mean Corpuscular HGB Conc 31.1 g/dL (31.8-35.4); Mean Corpuscular Hemoglobin 25.4 pg (27.0-31.2); Mean Corpuscular Volume 81.7 fl (81-99); Mean Platelet Volume 7.5 fl (7.4-10.4); Monocytes # 0.8 K/mm3 (0.1-1.0); Monocytes % 5.2 % (1.7-9.3); Neutrophils # 11.7 K/mm3 (1.8-7.8); Neutrophils % 75.1 % (37.0-80.0); Platelet Count 539 K/mm3 (142-424); Red Blood Count 3.61 M/mm3 (4.20-5.40); Red Cell Distribution Width 16.5 % (11.5-17.5); White Blood Count 15.6 K/mm3 (4.8-10.8)
[2017-05-28 15:48] LABS: MANUAL DIFFERENTIAL MANUAL DIFFERENTIAL (MANUAL DIFF)
[2017-05-28 16:09] LABS: Alanine Aminotransferase 23 U/L (12-78); Albumin Level 2.4 gm/dL (3.4-5.0); Albumin/Globulin Ratio 0.4 (1.1-1.8); Alkaline Phosphatase 269 U/L (46-116); Anion Gap 12.7 mEq/L (5-15); Aspartate Amino Transferase 16 U/L (15-37); Bilirubin,Total 0.2 mg/dL (0.2-1.0); Blood Urea Nitrogen 34 mg/dL (7-18); Calcium 8.1 mg/dL (8.5-10.1); Carbon Dioxide 27 mmol/L (21.0-32.0); Chloride 100 mmol/L (98-107); Creatinine Clearance Estimated 49 mL/min (0-300); Creatinine,Serum 2.22 mg/dL (0.55-1.02); Estimated Glomerular Filt Rate 23 ml/min (>60); GFR (African American) 28 ML/MIN (>60); Globulin 5.4 gm/dl (1.3-3.2); Glucose 170 mg/dL (74-106); Lymphocytes % 17 % (10-50); Monocytes % 6 % (2-9); Neutrophils % 77 % (42-76); Platelet Estimate Slight Increase; Potassium 5.7 mmoL/L (3.5-5.1); Sodium 134 mmol/L (136-145); Total Cells Counted 100; Total Protein,Serum 7.8 gm/dL (6.4-8.2)
[2017-05-28 16:11] LABS: Hypochromasia 1+
[2017-05-28 16:54] LABS: Microscopic, Urine URINE MICROSCOPIC (MICROSCOPIC)
[2017-05-28 16:56] VITALS: BMI 411484.1
[2017-05-28 17:09] LABS: Appearance,Urine CLEAR (Clear); Bilirubin,Urine Negative (Negative); Blood, Urine 2+ (Negative); Color,Urine YELLOW (Yellow); Glucose,Urine (UA) Negative (Negative); Ketones,Urine Negative (Negative); Leukocyte Esterase,Urine Negative (Negative); Nitrate,Urine Negative (Negative); PH,Urine 6.5 (5.0-8.5); Protein,Urine 2+ (Negative); Urobilinogen,Urine 0.2 EU/dl (0.2)
[2017-05-28 17:13] VITALS: BP 94/65; PULSE 58; RESP 18; TEMP 36.9; O2SAT 96
[2017-05-28 17:24] LABS: Lactic Acid 0.6 mmol/L (0.4-2.0)
--- NOTE | 2017-05-28 17:49 | SW/DCPLANNER ---
Visited this patient in the ED due to stating she is currently interested in placement. Patient was recently discharged from [facility] after BKA....before discharge I engaged in conversation with patient regarding discharge plans. Patient was very vocal and clear about returning home during previous admission. Patient was adamant about allowing home health services to come into her home but at time of discharged agreed to these services. Patient is now back in ED due to fall at home and lower back pain. I spoke with patient in the ED regarding placement and patient did state that she was interested in going to a rehabilitation facility. I explained to this patient the process of Medicaid in these facilities (payment is monthly income check-$40) and patient was quick to refuse placement. I informed patient that due to her health concerns this would be in her best interest. Patient also stated that she will not go anywhere that does not allow smoking. Patient then began stating that this situation was an accident, this was her only fall since returning home and that she was needing to remove all rugs in her house because this is the reason behind her fall. Patient stated that she is currently searching for a bottom floor handicap accessible apartment. I will follow up with patient in the AM to make sure placement situation has not changed and assist patient with housing if possible (I have made patient aware that housing is a long process, patient understood).
--- NOTE | 2017-05-28 19:34 | PC.NURSE ---
PATIENT ADMITTED TODAY WITH CELLULITIS TO RIGHT BKA STUMP. PATIENT STATES SHE FELL AT HOME, TRIPPING OVER A THROW RUG. LUNG SOUNDS ARE CLEAR, VITAL SIGNS ARE STABLE. WILL CONTINUE TO MONITOR.
[2017-05-28 20:00] VITALS: BP 152/77; PULSE 70; RESP 18; TEMP 36.8; O2SAT 97
[2017-05-29] VITALS (8 sets, daily range): BP systolic 99–137; BP diastolic 46–66; PULSE 58–70; RESP 18–20; TEMP 36.4–37.1; O2SAT 95–97; BMI 38.7; BMI 38.8
--- NOTE | 2017-05-29 01:22 | PC.NURSE ---
SITTING UP IN BED AWAKE. HAS SLEPT WELL THIS SHIFT IN BETWEEN MEDICATION PASS. HAS ASK FOR MORHINE ORDERED. STATES BACK AND RIGHT STUMP IS SORE FROM A FALL AT HOME. GOAL WAS TO GO TO A REHAB ON DISCHARGE. STATES AFTER FINDING OUT [facility] WOULD TAKE ALL HER MONEY EXCEPT $40.00 A MONTH, IS NOW REFUSING. SAYS WILL TRY TO MAKE ARRANGEMENT WITH STEP SISTER TO STAY WITH HER. HAS BEEN AFEBRILE, V/S WNL. LUNGS ARE CLEAR, RESP EVEN AND NONLABORED. DSG ON STUMP C/D/I. IV PATENT. HAS NO NEEDS AT THIS TIME. BED LOCKED IN LOW POSITION, SIDE RAILS UP X 2, CALL LIGHT WITHIN REACH. ENCOURAGED TO USE CALL LIGHT.
[2017-05-29 07:06] LABS: Basophils # 0.1 K/mm3 (0-0.2); Basophils % 0.7 % (0.1-2.0); Eosinophils # 0.6 K/mm3 (0.0-0.4); Eosinophils % 3.9 % (0.1-12.0); Hemoglobin 9.7 g/dL (12.2-16.2); Lymphocytes # 3.4 K/mm3 (0.7-4.5); Lymphocytes % 23.6 K/mm3 (10-50); Mean Corpuscular HGB Conc 31.2 g/dL (31.8-35.4); Mean Corpuscular Hemoglobin 25.7 pg (27.0-31.2); Mean Corpuscular Volume 82.3 fl (81-99); Mean Platelet Volume 7.3 fl (7.4-10.4); Monocytes # 0.8 K/mm3 (0.1-1.0); Monocytes % 5.3 % (1.7-9.3); Neutrophils # 9.6 K/mm3 (1.8-7.8); Neutrophils % 66.5 % (37.0-80.0); Platelet Count 558 K/mm3 (142-424); Red Blood Count 3.77 M/mm3 (4.20-5.40); Red Cell Distribution Width 16.9 % (11.5-17.5); White Blood Count 14.5 K/mm3 (4.8-10.8)
--- NOTE | 2017-05-29 07:21 | P.CONPHA_ITS ---
[facility] Pharmacy VTE Monitoring - Patient Demographics Admission date: 05/28/17 Report Date: 05/29/17 Time: 07:20 Allergies/Adverse Reactions: Patient Allergies acetaminophen [From Darvocet-N] Allergy (Unknown, Verified 05/28/17 14:46) Vomiting amoxicillin [From AUGMENTIN] Allergy (Unknown, Verified 05/28/17 14:46) clavulanic acid [From AUGMENTIN] Allergy (Unknown, Verified 05/28/17 14:46) codeine [CODEINE] Allergy (Unknown, Verified 05/28/17 14:46) NA-NAUSEA/VOMITING erythromycin base [ERYTHROMYCIN BASE] Allergy (Unknown, Verified 05/28/17 14:46) Vomiting Penicillins [PENICILLINS] Allergy (Unknown, Verified 05/28/17 14:46) Hives, Vomiting propoxyphene [From Darvocet-N] Allergy (Unknown, Verified 05/28/17 14:46) Vomiting CEPHALOSPORINS Allergy (Unknown, Uncoded 05/15/17 11:48) Anaphylaxis shock Height: 1.57 cm Weight: 102.058 kg Patient Problems: Current Active Problems Cellulitis (Acute) Back contusion (Acute) Fall (Acute) Wound dehiscence (Acute) - VTE Risk Labs: VTE Related Lab Results Hgb 9.7 g/dL (12.2-16.2) L 05/29/17 06:30 Hct 31.0 % (37.0-47.0) L 05/29/17 06:30 Plt Count 558 K/mm3 (142-424) H 05/29/17 06:30 BUN 34 mg/dL (7-18) H 05/28/17 15:30 Creatinine 2.22 mg/dL (0.55-1.02) H 05/28/17 15:30 Estimated Creat Clear 49 mL/min (0-300) 05/28/17 15:30 Was VTE Risk Assessment Performed: Yes VTE Score: 4 VTE Risk Level: Low Risk Clinical Trial Participant: No - Prophylaxis VTE Prophylaxis Ordered?: Yes Types of VTE Prophylaxis: TEDS Knee High
[2017-05-29 08:07] LABS: Anion Gap 17.6 mEq/L (5-15); Blood Urea Nitrogen 39 mg/dL (7-18); Carbon Dioxide 22 mmol/L (21.0-32.0); Chloride 100 mmol/L (98-107); Creatinine Clearance Estimated 53 mL/min (0-300); Creatinine,Serum 2.04 mg/dL (0.55-1.02); Estimated Glomerular Filt Rate 26 ml/min (>60); GFR (African American) 31 ML/MIN (>60); Glucose 128 mg/dL (74-106); Potassium 5.6 mmoL/L (3.5-5.1); Sodium 134 mmol/L (136-145)
--- NOTE | 2017-05-29 11:15 | SW/DCPLANNER ---
I have spoke with Kayla from [facility] of (home health agency that patient discharged home with during previous admission). Kayla has stated that yesterday was there first day visiting this patient due to patient not answering her phone. Ms Gann has again explained to MD this AM that she is no longer interested in LTC due to Medicaid guidelines of payment being monthly income check -$40. Kayla has stated that once patient is ready for discharge to fax discharge summary and they will resume services for this patient. I will have another conversation with this patient this evening regarding discharge plans.
--- NOTE | 2017-05-29 12:21 | CT_ITS ---
CT lumbar spine wo con INDICATION: Low back pain following injury ITS.REASON: fall/pain ORDERING PHYSICIAN: Kalen Kelly MD PATIENT AGE: 52 years COMPARISON: None TECHNIQUE: Axial images are obtained without contrast. Sagittal and coronal reformatted images are reviewed as well. FINDINGS: There is normal alignment. Minimally displaced fracture involves the right L1 transverse process and right L2 transverse process. Nondisplaced fracture involves right L3 transverse process. There is normal alignment. There is slight decrease in height of T12. This however does appear to be chronic having been present on older chest x-ray. There is bulging disc at L4-L5 with small broad-based central disc protrusion. This may be better evaluated with MRI if clinically warranted. There is bulging disc/disc osteophyte complex at L5-S1 eccentric towards the left with left-sided lateral recess and foraminal narrowing. There is increased soft tissue density in the central aspect of the pelvis may be due to the enlarged uterus with imaged IMPRESSION: 1. Fractures of the right L1, L2, and L3 transverse processes. 2. Bulging disc at L4-L5 with small central disc protrusion. 3. Bulging discs/disc osteophyte complex at L5-S1 eccentric towards the left
--- NOTE | 2017-05-29 12:23 | HMH.HP ---
*Admission Date: 05/28/17 *Chief complaint: fall *History of present illness: this wf who has sig diabetes and had recent amputation had fall at home with pain in lumbar region -patient is brought in by ambulance for evaluation after a fall. She had a right [id number] amputation done on 05/20/17 at this facility by Dr. Blackburn. She was discharged on the . She declined admission to a rehab facility at that time. She says she is getting around on a walker. She has a knee scooter. Cannot use a wheelchair. Lives upstairs. Fell today in the bathroom striking her back against the toilet, complains of low back pain. Also pulled out a couple stitches from her incision on her right BKA stump. Home health nurse was present and advised her to come to the emergency department for evaluation. Chief complaint at this time is back pain. However, she also wishes to have placement in a rehab facility investigated at this time, does not feel she is managing at home States she is on Percocet for pain at home. She says she has had significant pain since the surgery and Percocet is not helping. [facility] History I have reviewed the patient's past medical history: Yes Medical History: Reports:: Chronic Obstructive Pulmonary Disease (COPD), Coronary Artery Disease, Diabetes Mellitus Type 2, Hyperlipidemia, Hypertension, Myocardial Infarction, Renal Disease, Renal Insufficiency, Valvular Heart Disease Denies:: Cancer, Diabetes Mellitus Type 1, MRSA, Seizures Other Medical History: Denies: Blood Transfusion Reaction Laterality Cases: Right: Other Other Surgeries: Yes: Angioplasty, Coronary Stent, Other Amputation: Yes (1/2 foot) Fractures: No - *Social History Educational Level: Completed High School Smoking Status: Current every day smoker Tobacco Type: cigarettes # Packs/Day (cigarettes): 1 #Yrs smoked (if former smoker): 30 Alcohol Intake: never Substance Use Type: denies use Occupational Status: disabled Housing: apartment Household Members: none - Psychiatric History Expresses thoughts of harming self/others: None Suicide Plan Description: No Plan *Family Hx:: Stroke, Hypertension, Diabetes, Cancer, Kidney Disease, Anemia, Bleeding Disorder Review of Systems - Review of Systems Review of systems:: pertinent systems reviewed and negative unless documented below - Constitutional Denies fever(s) - Eyes Denies change in vision - ENT Denies throat swelling - *Cardiovascular Denies chest pain at rest - *Respiratory Denies cough - *Gastrointestinal Denies abdominal pain - *Musculoskeletal Reports joint pain, Reports back pain, Denies neck pain - Integumentary/Breasts Denies rash - *Neurologic Denies seizure-like activity, Denies fainting - Psychiatric Denies anxiety Meds Home Medications Medication Instructions Recorded Confirmed Type aspirin 81 mg tablet,delayed 81 mg PO DAILY 04/05/17 05/28/17 History release clopidogrel 75 mg tablet 75 mg PO DAILY 04/05/17 05/28/17 History digoxin 125 mcg tablet 125 mcg PO DAILY 04/05/17 05/28/17 History furosemide 40 mg tablet 40 mg PO DAILY 04/05/17 05/28/17 History insulin glargine (U-100) 100 60 units SUB-Q DAILY 04/05/17 05/29/17 History unit/mL (3 mL) subcutaneous pen insulin lispro (U-100) 100 unit/mL See Label Instructions SUB-Q BID 04/05/17 05/28/17 History subcutaneous solution ml lisinopril 10 mg tablet 10 mg PO DAILY 04/05/17 05/28/17 History metoprolol tartrate 25 mg tablet 25 mg PO BID 04/05/17 05/28/17 History Gabapentin [Neurontin 600mg 600 mg PO TID 05/21/17 05/28/17 History tablet] Cholecalciferol (Vitamin D3) 50,000 unit PO WEEKLY 05/29/17 05/29/17 History [Vitamin D3 50,000 unit Cap] Allergies Allergy/AdvReac Type Severity Reaction Status Date / Time acetaminophen Allergy Unknown Vomiting Verified 05/28/17 14:46 [From Darvocet-N] amoxicillin [From AUGMENTIN] Allergy Unknown Verified 05/28/17 14:46 clavulanic acid Allergy
--- NOTE | 2017-05-29 15:52 | SW/DCPLANNER ---
I have contacted the [facility] [place] to check on housing for this patient for a one bedroom handicap accessible....Sabrina from the [facility] has stated that they are currently a year+ out with housing. I have provided this patient with [facility] phone number to go ahead and call and add herself to the waiting list.
--- NOTE | 2017-05-29 16:13 | HMH.ORTHOCON ---
*Admission Date: 05/28/17 *Chief complaint: Lower back pain and right leg pain following fall at home *History of present illness: Patient is a 52-year-old female admitted through the ER following a fall at home. She recently underwent a right below-knee amputation on 05/20/[address] Blackburn and was discharged home on 24 May. She apparently declined admission to the rehab facility at that time and went home with home health. She says she fell in the bathroom yesterday sustaining injury to her lower back as well as to the right BKA stump. She says she fell in the bathroom hitting her lower back onto the toilet seat. Evaluation in the ER showed partial dehiscence of the surgical incision of the right BKA. Also imaging including CT scan of her lumbar spine showed nondisplaced transverse process of L1, 2 and L3 vertebrae on the right side. No history of any abdominal pain no history of any hematuria. She has history of uncontrolled diabetes and chronic smoking. She is on oral Percocet following her recent surgery. She says she is getting around with a walker. She also has a knee scooter. Says she cannot use a wheelchair as she lives upstairs. Today she also wishes to have placement in a rehab facility on discharge as she feels she is not managing well at home. Review of Systems - Review of Systems Review of systems:: pertinent systems reviewed and negative unless documented below - *Neurologic Denies seizure-like activity, Denies fainting H History I have reviewed the patient's past medical history: Yes Medical History: Reports:: Chronic Obstructive Pulmonary Disease (COPD), Coronary Artery Disease, Diabetes Mellitus Type 2, Hyperlipidemia, Hypertension, Myocardial Infarction, Renal Disease, Renal Insufficiency, Valvular Heart Disease Denies:: Cancer, Diabetes Mellitus Type 1, MRSA, Seizures Other Medical History: Denies: Blood Transfusion Reaction Laterality Cases: Right: Other Other Surgeries: Yes: Angioplasty, Coronary Stent, Other Amputation: Yes (1/2 foot) Fractures: No - *Social History Educational Level: Completed High School Smoking Status: Current every day smoker Tobacco Type: cigarettes # Packs/Day (cigarettes): 1 #Yrs smoked (if former smoker): 30 Alcohol Intake: never Substance Use Type: denies use Occupational Status: disabled Housing: apartment Household Members: none - Psychiatric History Expresses thoughts of harming self/others: None Suicide Plan Description: No Plan *Family Hx:: Stroke, Hypertension, Diabetes, Cancer, Kidney Disease, Anemia, Bleeding Disorder Meds Home Medications Medication Instructions Recorded Confirmed Type aspirin 81 mg tablet,delayed 81 mg PO DAILY 04/05/17 05/28/17 History release clopidogrel 75 mg tablet 75 mg PO DAILY 04/05/17 05/28/17 History digoxin 125 mcg tablet 125 mcg PO DAILY 04/05/17 05/28/17 History insulin glargine 100 unit/mL (3 60 units SUB-Q DAILY 04/05/17 05/29/17 History mL) subcutaneous pen insulin lispro 100 unit/mL See Label Instructions SUB-Q BID 04/05/17 05/28/17 History subcutaneous solution ml metoprolol tartrate 25 mg tablet 25 mg PO BID 04/05/17 05/28/17 History Gabapentin [Neurontin 600mg 600 mg PO TID 05/21/17 05/28/17 History tablet] Cholecalciferol (Vitamin D3) 50,000 unit PO WEEKLY 05/29/17 05/29/17 History [Vitamin D3 50,000 unit Cap] Allergies Allergy/AdvReac Type Severity Reaction Status Date / Time acetaminophen Allergy Unknown Vomiting Verified 05/28/17 14:46 [From Darvocet-N] amoxicillin [From AUGMENTIN] Allergy Unknown Verified 05/28/17 14:46 clavulanic acid Allergy Unknown Verified 05/28/17 14:46 [From AUGMENTIN] codeine [CODEINE] Allergy Unknown NA-NAUSEA/V Verified 05/28/17 14:46 OMITING erythromycin base Allergy Unknown Vomiting Verified 05/28/17 14:46 [ERYTHROMYCIN BASE] Penicillins [PENICILLINS] Allergy Unknown Hives, Verified 05/28/17 14:46 Vomiting propoxyphene Allergy Un
--- NOTE | 2017-05-29 16:16 | P.CONS_ITS ---
*Admission Date: 05/28/17 *Chief complaint: Lower back pain and right leg pain following fall at home *History of present illness: Patient is a 52-year-old female admitted through the ER following a fall at home. She recently underwent a right below-knee amputation on 05/20/[address] Blackburn and was discharged home on 24 May. She apparently declined admission to the rehab facility at that time and went home with home health. She says she fell in the bathroom yesterday sustaining injury to her lower back as well as to the right BKA stump. She says she fell in the bathroom hitting her lower back onto the toilet seat. Evaluation in the ER showed partial dehiscence of the surgical incision of the right BKA. Also imaging including CT scan of her lumbar spine showed nondisplaced transverse process of L1, 2 and L3 vertebrae on the right side. No history of any abdominal pain no history of any hematuria. She has history of uncontrolled diabetes and chronic smoking. She is on oral Percocet following her recent surgery. She says she is getting around with a walker. She also has a knee scooter. Says she cannot use a wheelchair as she lives upstairs. Today she also wishes to have placement in a rehab facility on discharge as she feels she is not managing well at home. Review of Systems - Review of Systems Review of systems:: pertinent systems reviewed and negative unless documented below - *Neurologic Denies seizure-like activity, Denies fainting H History I have reviewed the patient's past medical history: Yes Medical History: Reports:: Chronic Obstructive Pulmonary Disease (COPD), Coronary Artery Disease, Diabetes Mellitus Type 2, Hyperlipidemia, Hypertension , Myocardial Infarction, Renal Disease, Renal Insufficiency, Valvular Heart Disease Denies:: Cancer, Diabetes Mellitus Type 1, MRSA, Seizures Other Medical History: Denies: Blood Transfusion Reaction Laterality Cases: Right: Other Other Surgeries: Yes: Angioplasty, Coronary Stent, Other Amputation: Yes (1/2 foot) Fractures: No - *Social History Educational Level: Completed High School Smoking Status: Current every day smoker Tobacco Type: cigarettes # Packs/Day (cigarettes): 1 #Yrs smoked (if former smoker): 30 Alcohol Intake: never Substance Use Type: denies use Occupational Status: disabled Housing: apartment Household Members: none - Psychiatric History Expresses thoughts of harming self/others: None Suicide Plan Description: No Plan *Family Hx:: Stroke, Hypertension, Diabetes, Cancer, Kidney Disease, Anemia, Bleeding Disorder Meds Home Medications Medication Instructions Recorded Confirmed Type aspirin 81 mg tablet,delayed 81 mg PO DAILY 04/05/17 05/28/17 History release clopidogrel 75 mg tablet 75 mg PO DAILY 04/05/17 05/28/17 History digoxin 125 mcg tablet 125 mcg PO DAILY 04/05/17 05/28/17 History insulin glargine 100 unit/mL (3 60 units SUB-Q DAILY 04/05/17 05/29/17 History mL) subcutaneous pen insulin lispro 100 unit/mL See Label Instructions SUB-Q BID 04/05/17 05/28/17 History subcutaneous solution ml metoprolol tartrate 25 mg tablet 25 mg PO BID 04/05/17 05/28/17 History Gabapentin [Neurontin 600mg 600 mg PO TID 05/21/17 05/28/17 History tablet] Cholecalciferol (Vitamin D3) 50,000 unit PO WEEKLY 05/29/17 05/29/17 History [Vitamin D3 50,000 unit Cap] Allergies Allergy/AdvReac Type Severity Reaction Status Date / Time acetaminophen Allergy Unknown Vomiting Verified 05/28/17 14:46 [From Da
--- NOTE | 2017-05-29 18:05 | PC.NURSE ---
52 YEAR OLD WHITE FEMALE PRESENTED TO THE HOSPITAL AFTER A FALL AT HOME SHE COMPLAINED OF BACK PAIN, AND IT WAS NOTED THAT HER STUMP HAS A SMALL AMOUNT OF BLOODY DRAINAGE SHE STATES SHE THINKS THIS WAS DONE AT THE TIME OF THE FALL. THERE IS AN OPEN AREA MID INCISION. RAFAEL AND SUTURES ARE INTACT. DR. CABALLERO VISITED AT BEDSIDE PER DR. CABALLERO REMOVE THIS ONE STABLE AND APPLY A WOUND VAC. A CULTURE WAS COLLECTED BY ME PER DR. CABALLERO OF THE DRAINAGE NOTED TO THE STUMP HE WAS ALSO GIVEN THE RESULTS OF HER CT BY DR. CABALLERO. HE STATES THE FRACTURES SHOULD HEAL ON THERE OWN. SHE HAS COMPLAINED OF PAIN TODAY AND PAIN MEDICATION WAS ADMINISTERED PER ORDER. SHE HAS A 20 GUAGE IV SALINE LOCKED IN HER RIGHT AC. HER LUNGS ARE CTA. SHE IS UNABLE TO WEAR LUCERO HOSE AND HAS REFUSED TO TRY. OVERALL SHE HAS DONE WELL TODAY. WILL CONTINUE TO MONITOR. ANTHONY DIAZ, MSN, RN
[2017-05-30] VITALS (8 sets, daily range): BP systolic 107–125; BP diastolic 53–86; PULSE 53–64; RESP 17–20; TEMP 36.4–36.8; O2SAT 94–98
--- NOTE | 2017-05-30 04:05 | PC.NURSE ---
C/O PAIN IN LOWER PORTION OF BACK, RLE, AND IN UPPER AREA OF ABDOMEN. DISTENSION NOTED ON EPIGASTRIC REGION. PT STATED I HAVE A HERNIA THERE. WHEN I MOVE I HAVE SHARP PAIN THERE. I WAS TOLD THAT I WOULD EVENTUALLY HAVE PAIN THERE AND HAVE SURGERY ON IT. I AM NOT SURE IF WHEN I FELL THAT IT MADE IT WORSE OR WHAT BUT I AM GOING TO TELL THE DOCTOR IN THE MORNING PRN PAIN MEDICATION ADMINISTERED PER MAR, ON REASSESSMENT, PT NOTED WITH EYES CLOSED AND RESTING IN BED. WOUND VAC APPLIED TO RLE, REINFORCED X1 THIS SHIFT. WOUND VAC SUCTIONING SEROSANGUINEOUS DRAINAGE. MINIMAL DRAINAGE NOTED IN SUCTION CANISTER. VSS. WILL CONTINUE TO MONITOR.
--- NOTE | 2017-05-30 07:20 | PC.NURSE ---
REPORT GIVEN TO Ayo ARZATE W/C
--- NOTE | 2017-05-30 07:40 | PC.NURSE ---
REPORT GIVEN TO Cynthia DIAZ RN
--- NOTE | 2017-05-30 08:04 | P.PN_ITS ---
Internal Medicine - PN: Subj *Date: 05/30/17 *Time: 08:01 Interval history: pt with ongoing back pain after fall - pt was seen by ortho - pt with no fever and has dec mov sec to injury Exam Vital signs and Labs for Last 24 Hours: Temp Pulse Resp BP Pulse Ox 97.8 F 61 17 110/56 96 05/30/17 07:55 05/30/17 07:55 05/30/17 07:55 05/30/17 07:55 05/30/17 07:55 Laboratory Results - last 24 hr 05/29/17 06:30: Sodium 134 L, Potassium 5.6 H, Chloride 100, Carbon Dioxide 22, Anion Gap 17.6 H, BUN 39 H, Creatinine 2.04 H, Estimated Creat Clear 53, Estimated GFR 26 L, Est GFR ( Amer) 31 L, Glucose 128 H D I & O for Last 24 hours: Intake & Output 05/27/17 05/28/17 05/29/17 05/30/17 11:59 11:59 11:59 11:59 Intake Total 960 / 960 2104 / 2104 Output Total 1100 / 1100 Balance 960 / 960 1004 / 1004 Weight 233 lb 232 lb 15.999 oz Microbiology Reports for the Last 24 Hours: Microbiology 05/29/17 00:00 Blood Blood Culture - Preliminary NO GROWTH AFTER 24 HOURS 05/29/17 00:00 Blood Blood Culture - Preliminary NO GROWTH AFTER 24 HOURS 05/29/17 16:00 Incision Gram Stain - Final - Constitutional no acute distress - *Routine HEENT Exam Head: Present: normocephalic Eye: Present: EOMI, PERRL ENT: Present: mucous membranes dry - *Routine Neck Exam Present: supple - *Routine Respiratory Exam Present: CTA bilaterally - *Routine Cardiovascular Exam Present: RRR - *Routine Abdominal Exam Present: soft - *Routine Extremities Exam Comments: s/p amputation - *Routine Skin Exam Comments: reddness at surg site - will defer to ortho - *Routine Neurological Exam Present: alert, oriented X3, CN II-XII intact - Routine Psychiatric Exam Present: normal affect Assessment and Plan (1) Renal insufficiency Current visit: Yes Status: Acute Category: Medical Code(s): N28.9 - Disorder of kidney and ureter, unspecified (2) IDDM (insulin dependent diabetes mellitus) Current visit: Yes Status: Acute Category: Medical Code(s): E11.9 - Type 2 diabetes mellitus without complications; 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 (3) Hyperkalemia Current visit: Yes Status: Acute Category: Medical Code(s): E87.5 - Hyperkalemia (4) Status post below knee amputation of right lower extremity Current visit: Yes Status: Acute Category: Surgical Code(s): Z89.511 - Acquired absence of right leg below knee (5) Fracture of transverse process of lumbar vertebra Current visit: Yes Status: Acute Qualifiers: Encounter type: initial encounter Fracture type: closed Qualified Code(s) : S32.009A - Unspecified fracture of unspecified lumbar vertebra, initial encounter for closed fracture Category: Medical Code(s): S32.009A - Unspecified fracture of unspecified lumbar vertebra, initial encounter for closed fracture
[2017-05-30 08:37] LABS: Anion Gap 12.7 mEq/L (5-15); Blood Urea Nitrogen 41 mg/dL (7-18); Carbon Dioxide 25 mmol/L (21.0-32.0); Chloride 98 mmol/L (98-107); Creatinine Clearance Estimated 53 mL/min (0-300); Creatinine,Serum 2.12 mg/dL (0.55-1.02); Estimated Glomerular Filt Rate 25 ml/min (>60); GFR (African American) 30 ML/MIN (>60); Glucose 210 mg/dL (74-106); Potassium 4.7 mmoL/L (3.5-5.1); Sodium 131 mmol/L (136-145)
--- NOTE | 2017-05-30 09:19 | SW/DCPLANNER ---
I have spoke with this patient about [facility]....patient was quick to refuse this discharge plan. Patient has stated that is too far away from her boyfriend and children. I have explained to patient this would be short term and would benefit her extremely...patient has still disagreed and stated that she is going to go home when she is ready for discharge and be more careful . I will follow up with this patient in the AM to assist with any needs/new orders. Patient will be ready for discharge tomorrow pending no setbacks.
--- NOTE | 2017-05-30 09:33 | HMH.OTEV ---
Physical Therapy Evaluation Rehab OT IP Evaluation Start: 05/30/17 08:07 Freq: ONCE Status: Complete Protocol: Document 05/30/17 09:27 TFRY (Rec: 05/30/17 09:33 TFRY [id number]) Rehab OT IP Assessment Subjective History This is a 52 year old admitted to the hospital after falling at home. Patient is status post an amputation. Subjective I need my pain medicine. Objective Upper Extremity Gross ROM WNL Bed Mobility bed mobility - supine/sit Assist Level Supervision/Stand by Feeding Ability Independent Oral Care Ability Independent decrease in endurance No Rehab OT IP prob,goals,plan Problems Date of Evaluation: 05/30/17 OT IP Problems Bed Mobility Transfers Self care Safety Rehab Potential Rehab Potential Fair Equipment Needs Assistive Devices Rolling / Wheeled Walker Plan OT intervention Plan Bed Mobility Transfers Self care Safety OT Plan Frequency BID Duration LOS Discharge Goals Bed Mobility Ability Independent Sit to Stand Chair Transfer Ability Supervision/Stand by Chair Transfer Ability Supervision/Stand by Chair Transfer Technique Sit to/from Ambulatory Chair Transfer Assistive Devices Rolling Walker Self care skills fully toilet trained Feeding Ability Independent Lower Body Dressing Ability Standby Assistance Upper Body Dressing Ability Standby Assistance Bathing Ability Standby Assistance Performing Toilet Hygiene Ability Independent Overall Commode/Toilet Transfer Ability Standby Assistance Commode/Toilet Transfer Technique Sit to/from Ambulatory Commode/Toilet Transfer Assistive Raised Toilet Seat Devices Oral Care Ability Independent Discharge Plan OT Discharge Plan To return home. Eval Complexity Eval Charge Codes 64926 - Low Complexity G Codes G -code Required Yes OT Current Status Other PT/OT Status OT Current Status Modifier CK-At least 40% but less than 60% impaired, limited or restricted OT Goal Status Other PT/OT Status OT Goal Status Modifier CI-At least 1% but less than 20% impaired, limited or restricted
--- NOTE | 2017-05-30 12:20 | HMH.PTEV ---
Physical Therapy Evaluation Rehab PT IP Evaluation Start: 05/30/17 08:06 Freq: ONCE Status: Active Protocol: Document 05/30/17 12:16 PHORMARTHA (Rec: 05/30/17 12:20 PHORNE [id number]) Subjective/History History History 52 yof adm to [facility] with weakness and back pain. Recent right BKA with VAC dressing in place. Subjective Subjective Pt c/o pain in low back with activity. Rehab PT IP Eval Objective Appearance Patient Behavior Appropriate Patient Orientation Person Place Time Difficulty following instructions none Speech Pattern Clear Ambulation Patient Able to Ambulate Yes Ambulation Observation Ambulation Distance (feet) 4 Ambulation Assistive Device Rolling Walker Balance Ability to Arise Able, w/o using arms Sitting Balance Steady, safe Standing Balance Narrow stance w/o support Dynamic Sitting Balance Ability Good Dynamic Standing Balance Ability Fair Transfers Bed Transfer Ability Supervision/Stand by Chair Transfer Ability Supervision/Stand by Sit to Stand Bed Transfer Ability Supervision/Stand by Sit to Stand Chair Transfer Ability Supervision/Stand by Pain Back Pain Intensity 5 MMT All Extremities PT MMT WFL Rehab PT IP prob,goals,plan Problems Date of Evaluation: 05/30/17 Discharge Plan PT Discharge Plan Pt is appropriate to return home once medically stable. G -code Required Yes Eval Complexity Eval Charge Codes 17239 - Moderate Complexity G Codes PT Current Status Mobility PT Current Status Modifier CJ-At least 20% but less than 40% impaired, limited or restricted PT Goal Status Mobility PT Goal Status Modifer CJ-At least 20% but less than 40% impaired, limited or restricted PHYSICIAN CERTIFICATION: I certify the specified therapy services for Mikayla Crow are required, authorized, and reviewed every 30 days.
--- NOTE | 2017-05-30 12:41 | HMH.ORTHPN ---
Subjective Date: 05/30/17 Time: 12:40 Interval history: Patient is lying down in bed says she is feeling a lot better today. She reports less pain in her right BKA stump. No history of any fevers, chills or rigors. She also reports that her lower back pain is well controlled. No history of any abdominal pain or hematuria. PN: Obj Ex Vital signs: Temp Pulse Resp BP Pulse Ox 97.8 F 64 20 110/56 96 05/30/17 07:55 05/30/17 09:06 05/30/17 09:04 05/30/17 07:55 05/30/17 07:55 Narrative: Laboratory Results - last 24 hr 05/30/17 08:20: Sodium 131 L, Potassium 4.7, Chloride 98, Carbon Dioxide 25, Anion Gap 12.7, BUN 41 H, Creatinine 2.12 H, Estimated Creat Clear 53, Estimated GFR 25 L, Est GFR ( Amer) 30 L, Glucose 210 H - Constitutional no acute distress - Routine HEENT Exam Head: Present: normocephalic, atraumatic Eye: Present: EOMI, PERRL - Routine Neck Exam Present: supple, full ROM, trachea midline - Routine Respiratory Exam Present: CTA bilaterally - Routine Cardiovascular Exam Present: RRR, Normal S1, Normal S2 - Routine Abdominal Exam Present: soft, normoactive bowel sounds - Routine Extremities Exam Comments: Right BKA stump has a VAC dressing in place over the area of the wound dehiscence in the middle of the suture line. The rest of the suture line appears clean, dry and healthy and the molina are in place. Serous fluid noted in the VAC drainage tube. There is no erythema or induration of the stump. She has mild tenderness over the stump. The circulation to the amputation stump appears adequate. - Routine Back/Spine/Pelvis Exam Back/Spine: Present: paraspinal tenderness (Right paraspinal tenderness over the lumbar spine), muscle spasm (Over the right side of the lumbar spine), pain with flexion, pain with lateral flexion, pain with rotation - Routine Skin Exam Present: normal turgor - Routine Neurological Exam Present: alert, oriented X3, CN II-XII intact - Routine Psychiatric Exam Present: normal affect, normal thought process, cooperative Progress Note: A&P (1) Renal insufficiency Status: Chronic Current Visit: Yes (2) IDDM (insulin dependent diabetes mellitus) Status: Chronic Current Visit: Yes (3) Status post below knee amputation of right lower extremity Status: Acute Current Visit: Yes (4) Fracture of transverse process of lumbar vertebra Status: Acute Assessment and plan: Reviewed the findings and progress with the patient. The Gram stain of the wound swab is negative. Culture results are not available yet. Patient is feeling a lot better today and recommend continuation of the same management. With regards to her lumbar transverse process fractures, again advised continuation of conservative management with rest, activity modification, simple pain medication and mobilization as tolerated. The management as per Dr. Kelly. Current Visit: Yes
--- NOTE | 2017-05-30 18:40 | PC.NURSE ---
52 YEAR OLD WHITE FEMALE PRESENTED TO THE ER ON 05/28/17 AFTER A FALL. SHE WAS ADMITTED WITH A DIAGNOSIS OF CELLULITIS OF THE LEFT STUMP POST SURGERY. SHE HAS A WOUND VAC ON AND THIS WAS INITIATED ON 05/29/17 AT APPROXIMATELY 1830. sHE HAS TOLERATED THIS WELL. SHE CONTINUES TO ASK FOR PAIN MEDICATION THROUGHOUT THE DAY AND TRACKS WHEN THIS IS DUE. LUNG ASSESSMENT REVEALS CLEAR LUNG SOUNDS. PHYSICAL THERAPY AND OCCUPATION THERAPY EVALUATED TODAY. SHE CONTINUES WITH A SALINE LOCK AND HAS ANTIBIOTICS ORDERED AND INFUSED WITHOUT DIFFICULTY. SHE DID HAVE A SHOWER TODAY AND STATES SHE FEELS SOME BETTER. WILL CONTINUE TO MONITOR. ANTHONY DIAZ, MSN, RN
[2017-05-31 01:02] VITALS: RESP 18
[2017-05-31 03:42] VITALS: BP 105/64; PULSE 54; RESP 17; TEMP 36.6; O2SAT 96
--- NOTE | 2017-05-31 04:14 | PC.NURSE ---
no changes noted from previous assessment, pt has rested intervals this shift, pt c/o pain in the right hip area throughout shift which is partially relieved with PRN pain medication, pt educated on alternate forms of pain control, breath sounds clear, vss, pt maintaining O2 sats at or above 90 on room air, pt able to ambulate to and from bedside commode without assistance, wound vac in place to the RLE draining serosanguineous fluids, no acute distress noted at this time, call light in reach, will continue to monitor.
[2017-05-31 05:58] VITALS: RESP 16
--- NOTE | 2017-05-31 07:07 | PC.NURSE ---
Addendum entered by Kristy Barksdale RN 05/31/17 07:12: Report given to Tesha Cosby RN Original Note: Report given to Francisca Covarrubias RN
--- NOTE | 2017-05-31 07:12 | PC.NURSE ---
REPORT GIVEN TO Gayle GEE W/C
[2017-05-31 07:59] VITALS: BP 118/52; PULSE 59; RESP 16; TEMP 36.6; O2SAT 96
--- NOTE | 2017-05-31 08:49 | HMH.DCSUM ---
General - General Admission date: 05/28/17 Discharge date: 05/31/17 HPI HPI: this wf who has sig diabetes and had recent amputation had fall at home with pain in lumbar region -patient is brought in by ambulance for evaluation after a fall. She had a right [id number] amputation done on 05/20/17 [address] Dr. Blackburn. She was discharged on the . She declined admission to a rehab facility at that time. She says she is getting around on a walker. She has a knee scooter. Cannot use a wheelchair. Lives upstairs. Fell today in the bathroom striking her back against the toilet, complains of low back pain. Also pulled out a couple stitches from her incision on her right BKA stump. Home health nurse was present and advised her to come to the emergency department for evaluation. Chief complaint at this time is back pain. However, she also wishes to have placement in a rehab facility investigated at this time, does not feel she is managing at home States she is on Percocet for pain at home. She says she has had significant pain since the surgery and Percocet is not helping. Objective Vital signs: Temp Pulse Resp BP Pulse Ox 97.9 F 59 L 16 118/52 96 05/31/17 07:59 05/31/17 07:59 05/31/17 07:59 05/31/17 07:59 05/31/17 07:59 no acute distress, obese - *Routine HEENT Exam Head: Present: normocephalic Eye: Present: EOMI, PERRL ENT: Present: mucous membranes dry - *Routine Neck Exam Present: supple - *Routine Respiratory Exam Absent: respiratory distress - *Routine Abdominal Exam Present: soft, tenderness, distended - *Routine Extremities Exam Comments: s/p amputation - wd ok - *Routine Skin Exam Comments: wound vac on amputation - *Routine Neurological Exam Present: alert, oriented X3, CN II-XII intact - Routine Psychiatric Exam Present: normal affect Hospital Course Hospital Course: pt has did well with amputation doing ok- dr noel has seen pt and her spine fx are stable and we will need to do home therapy Results Labs on day of discharge: Preliminary micro results at discharge 05/29/17 00:00 Blood Culture - Preliminary Blood NO GROWTH AFTER 48 HOURS 05/29/17 00:00 Blood Culture - Preliminary Blood NO GROWTH AFTER 48 HOURS 05/29/17 16:00 Wound Culture - Preliminary Incision NO GROWTH AFTER 24 HOURS DS: Diagnosis - Discharge Diagnosis (1) Renal insufficiency Status: Chronic (2) IDDM (insulin dependent diabetes mellitus) Status: Chronic (3) Hyperkalemia Status: Acute (4) Status post below knee amputation of right lower extremity Status: Acute (5) Fracture of transverse process of lumbar vertebra Status: Acute (6) Obesity Status: Acute (7) Non-compliance Status: Acute Discharge Plan - Patient Discharge Instructions ACTIVITY: Continue current activity DIET: continue same diet - Follow up Plan Disposition: Home, Self-Penitentiary Medications: Home Medications Medication Instructions Recorded Confirmed Type aspirin 81 mg tablet,delayed 81 mg PO DAILY 04/05/17 05/28/17 History release clopidogrel 75 mg tablet 75 mg PO DAILY 04/05/17 05/28/17 History digoxin 125 mcg tablet 125 mcg PO DAILY 04/05/17 05/28/17 History furosemide 40 mg tablet 40 mg PO DAILY 04/05/17 05/28/17 History insulin glargine 100 unit/mL (3 60 units SUB-Q DAILY 04/05/17 05/29/17 History mL) subcutaneous pen insulin lispro 100 unit/mL See Label Instructions SUB-Q BID 04/05/17 05/28/17 History subcutaneous solution ml lisinopril 10 mg tablet 10 mg PO DAILY 04/05/17 05/28/17 History metoprolol tartrate 25 mg tablet 25 mg PO BID 04/05/17 05/28/17 History Gabapentin [Neurontin 600mg 600 mg PO TID 05/21/17 05/28/17 History tablet] Cholecalciferol (Vitamin D3) 50,000 unit PO WEEKLY 05/29/17 05/29/17 History [Vitamin D3 50,000 unit Cap] Prescriptions/Medication Reconciliation: Lopez Meyers
--- NOTE | 2017-05-31 08:53 | P.DS_ITS ---
General - General Admission date: 05/28/17 Discharge date: 05/31/17 HPI HPI: this wf who has sig diabetes and had recent amputation had fall at home with pain in lumbar region -patient is brought in by ambulance for evaluation after a fall. She had a right ocqhc-[id number]-[id number] amputation done on 05/20/17 [address] Dr. Blackburn. She was discharged on the . She declined admission to a rehab facility at that time. She says she is getting around on a walker. She has a knee scooter. Cannot use a wheelchair. Lives upstairs. Fell today in the bathroom striking her back against the toilet, complains of low back pain. Also pulled out a couple stitches from her incision on her right BKA stump. Home health nurse was present and advised her to come to the emergency department for evaluation. Chief complaint at this time is back pain. However, she also wishes to have placement in a rehab facility investigated at this time, does not feel she is managing at home States she is on Percocet for pain at home. She says she has had significant pain since the surgery and Percocet is not helping. Objective Vital signs: Temp Pulse Resp BP Pulse Ox 97.9 F 59 L 16 118/52 96 05/31/17 07:59 05/31/17 07:59 05/31/17 07:59 05/31/17 07:59 05/31/17 07:59 no acute distress, obese - *Routine HEENT Exam Head: Present: normocephalic Eye: Present: EOMI, PERRL ENT: Present: mucous membranes dry - *Routine Neck Exam Present: supple - *Routine Respiratory Exam Absent: respiratory distress - *Routine Abdominal Exam Present: soft, tenderness, distended - *Routine Extremities Exam Comments: s/p amputation - wd ok - *Routine Skin Exam Comments: wound vac on amputation - *Routine Neurological Exam Present: alert, oriented X3, CN II-XII intact - Routine Psychiatric Exam Present: normal affect Hospital Course Hospital Course: pt has did well with amputation doing ok- dr noel has seen pt and her spine fx are stable and we will need to do home therapy Results Labs on day of discharge: Preliminary micro results at discharge 05/29/17 00:00 Blood Culture - Preliminary Blood NO GROWTH AFTER 48 HOURS 05/29/17 00:00 Blood Culture - Preliminary Blood NO GROWTH AFTER 48 HOURS 05/29/17 16:00 Wound Culture - Preliminary Incision NO GROWTH AFTER 24 HOURS DS: Diagnosis - Discharge Diagnosis (1) Renal insufficiency Status: Chronic (2) IDDM (insulin dependent diabetes mellitus) Status: Chronic (3) Hyperkalemia Status: Acute (4) Status post below knee amputation of right lower extremity Status: Acute (5) Fracture of transverse process of lumbar vertebra Status: Acute (6) Obesity Status: Acute (7) Non-compliance Status: Acute Discharge Plan - Patient Discharge Instructions ACTIVITY: Continue current activity DIET: continue same diet - Follow up Plan Disposition: Home, Self-Custodial Medications: Home Medications Medication Instructions Recorded Confirmed Type aspirin 81 mg tablet,delayed 81 mg PO DAILY 04/05/17 05/28/17 History release clopidogrel 75 mg tablet 75 mg PO DAILY 04/05/17 05/28/17 History digoxin 125 mcg tablet 125 mcg PO DAILY 04/05/17 05/28/17 History furosemide 40 mg tablet 40 mg PO DAILY 04/05/17
--- NOTE | 2017-05-31 11:36 | SW/DCPLANNER ---
Addendum entered by Cary Quintanilla 05/31/17 15:48: Kayla has confirmed that they will see this patient on Saturday06/03/17. Original Note: I have contacted Kayla from [facility] to inform her that this patient will be discharging home today and discharge summary has been faxed to [facility].
--- NOTE | 2017-05-31 13:11 | PC.NURSE ---
WOUND TO RIGHT BKA INCISION LINE MEASUREMENTS FOLLOWS: WOUND NOTED TO BE 2 CM LONG. WIDTH VARIES WITH LARGEST AREA BEING 8/10THS OF CM. DEPTH NOTED TO BE 2/10THS OF CM.
--- NOTE | 2017-05-31 13:53 | PC.NURSE ---
WOUND VAC DRESSING WAS REPLACED AT THIS TIME.
--- NOTE | 2017-05-31 15:27 | HMH.ORTHPN ---
Subjective Date: 05/31/17 Time: 14:45 Interval history: Patient is sitting up in the bed and says she is feeling a lot better today. She reports very little pain in her right BKA stump. She reports lower back pain worse with most of the spine. No history of any fevers, chills or rigors. No history of any abdominal pain or hematuria. PN: Obj Ex Vital signs: Temp Pulse Resp BP Pulse Ox 97.9 F 59 L 16 118/52 96 05/31/17 07:59 05/31/17 07:59 05/31/17 07:59 05/31/17 07:59 05/31/17 07:59 - Constitutional no acute distress, cooperative - Routine HEENT Exam Head: Present: normocephalic, atraumatic Eye: Present: EOMI, PERRL - Routine Neck Exam Present: supple, full ROM - Routine Respiratory Exam Present: CTA bilaterally - Routine Cardiovascular Exam Present: RRR, Normal S1, Normal S2 - Routine Abdominal Exam Present: soft, normoactive bowel sounds - Routine Extremities Exam Comments: Right BKA stump has a VAC dressing in place over the area of the wound dehiscence in the middle of the suture line. The rest of the suture line appears clean, dry and healthy and the molina are in place. Serous fluid noted noted draining into the VAC drainage tube. There is no erythema or induration of the stump. She has minimal tenderness over the stump. The circulation to the amputation stump appears adequate. - Routine Back/Spine/Pelvis Exam Comments: paraspinal tenderness (Right paraspinal tenderness over the lumbar spine), muscle spasm (Over the right side of the lumbar spine), pain with flexion, pain with lateral flexion, pain with rotation - Routine Skin Exam Present: intact, normal turgor - Routine Neurological Exam Present: alert, oriented X3, CN II-XII intact - Routine Psychiatric Exam Present: normal affect, normal thought process, cooperative Progress Note: A&P (1) Renal insufficiency Status: Chronic (2) IDDM (insulin dependent diabetes mellitus) Status: Chronic (3) Status post below knee amputation of right lower extremity Status: Acute (4) Fracture of transverse process of lumbar vertebra Status: Acute Assessment and plan: Reviewed the findings and progress with the patient. Patient says she is feeling a lot better today and recommend continuation of the same management. With regards to her lumbar transverse process fractures, advised continuation of conservative management with rest, activity modification, simple pain medication and mobilization as tolerated. Continue the medical management as per Dr. Kelly. She is being discharged home today with home health. Recommend continuation of VAC dressings to the right BKA stump and home health to monitor this. Follow-up with Dr. Blackburn in the office in 1 week's time.
[2017-05-31 16:00] VITALS: BP 144/94; PULSE 61; RESP 18; TEMP 36.7; O2SAT 98
[2017-06-06 15:00] LABS: POC Glucose,Bedside 159 mg/dL (70-110)
[2017-06-06 15:02] LABS: POC Glucose,Bedside 259 mg/dL (70-110)
[2017-06-06 15:02] LABS: POC Glucose,Bedside 143 mg/dL (70-110)
[2017-06-06 15:03] LABS: POC Glucose,Bedside 166 mg/dL (70-110)
[2017-06-06 15:04] LABS: POC Glucose,Bedside 172 mg/dL (70-110)
[2017-06-06 15:04] LABS: POC Glucose,Bedside 190 mg/dL (70-110)
[2017-06-06 15:04] LABS: POC Glucose,Bedside 203 mg/dL (70-110)
[2017-06-06 15:04] LABS: POC Glucose,Bedside 194 mg/dL (70-110)
[2017-06-06 15:04] LABS: POC Glucose,Bedside 191 mg/dL (70-110)
[2017-06-06 15:05] LABS: POC Glucose,Bedside 170 mg/dL (70-110)
[2017-06-06 15:05] LABS: POC Glucose,Bedside 135 mg/dL (70-110)
== END 2017-05-31 16:30 | disposition home health service (06) ==
LOC: ER 16:30 → 2ND 18:02
PROVIDERS: Admitting Provider Emergency Medicine; Emergency Provider Emergency Medicine; PCP Nurse Practitioner Family; Visit Provider Emergency Medicine
DX: S32.018A Other fracture of first lumbar vertebra, initial encounter for closed fracture (principal); J44.9 Chronic obstructive pulmonary disease, unspecified; Z95.5 Presence of coronary angioplasty implant and graft; I10 Essential (primary) hypertension; Z72.0 Tobacco use; Z89.511 Acquired absence of right leg below knee; S32.028A Other fracture of second lumbar vertebra, initial encounter for closed fracture; S32.038A Other fracture of third lumbar vertebra, initial encounter for closed fracture; W18.39XA Other fall on same level, initial encounter; Y92.012 Bathroom of single-family (private) house as the place of occurrence of the external cause; I25.10 Atherosclerotic heart disease of native coronary artery without angina pectoris; E11.9 Type 2 diabetes mellitus without complications
CPT/HCPCS: 36415; 72110; 72131; 80048; 80053; 81001; 82962; 83605; 85007; 85025; 87040; 87070; 87205; 96365; 96374; 96375; 96376; 97162; 97165; 98960; 99284; G0378; J2405

== ENCOUNTER → 2017-06-06 12:32 | Outpatient (REF) | payer OTHER, SELFPAY | LOC: LAB 12:32 | PROVIDERS: Visit Provider Orthopaedic Surgery | DX: Z89.511 Acquired absence of right leg below knee (principal) | CPT/HCPCS: 87070; 87075; 87077; 87186; 87205 ==

== ENCOUNTER 2017-06-06 13:12 | Outpatient (CLI) | payer OTHER, SELFPAY ==
[2017-06-06 12:45] VITALS: BP 108/70; PULSE 68; RESP 18; TEMP 36.6; O2SAT 96
[2017-06-06 13:15] VITALS: BP 112/71; PULSE 68; RESP 18; O2SAT 95
[2017-06-06 13:45] VITALS: BP 124/69; PULSE 71; RESP 18
[2017-06-06 14:15] VITALS: BP 118/76; PULSE 69; RESP 16; TEMP 36.7; O2SAT 95
[2017-06-06 14:45] VITALS: BP 125/69; PULSE 68; RESP 16; O2SAT 95
[2017-06-06 15:20] VITALS: BP 119/64; PULSE 70; RESP 18; TEMP 36.8; O2SAT 96
== END 2017-06-06 15:35 | disposition home or self-care (01) ==
LOC: INF 13:12
PROVIDERS: Visit Provider Orthopaedic Surgery
DX: Z89.511 Acquired absence of right leg below knee (principal); E11.9 Type 2 diabetes mellitus without complications
CPT/HCPCS: 96365; 96366; J3370

== ENCOUNTER 2017-06-07 13:19 | Outpatient (CLI) | payer OTHER, SELFPAY ==
[2017-06-07] VITALS (7 sets, daily range): BP systolic 103–157; BP diastolic 52–82; PULSE 61–72; RESP 16–18; TEMP 36.9
== END 2017-06-07 17:08 | disposition home or self-care (01) ==
LOC: INF 13:19
PROVIDERS: PCP Nurse Practitioner Family; Visit Provider Orthopaedic Surgery
DX: Z89.511 Acquired absence of right leg below knee (principal)
CPT/HCPCS: 96365; 96366; J2407

== ENCOUNTER 2017-06-14 11:19 | Inpatient (IN) | payer OTHER, SELFPAY ==
[2017-06-14] VITALS (23 sets, daily range): BP systolic 109–155; BP diastolic 47–93; PULSE 74–106; RESP 12–21; TEMP 36.4–37.1; O2SAT 91–99; BMI 41.1; BMI 42.8
[2017-06-14 12:29] LABS: Basophils # 0.1 K/mm3 (0-0.2); Basophils % 0.8 % (0.1-2.0); Eosinophils # 0.3 K/mm3 (0.0-0.4); Eosinophils % 3.5 % (0.1-12.0); Hematocrit 31.6 % (37.0-47.0); Hemoglobin 9.7 g/dL (12.2-16.2); Lymphocytes # 2.5 K/mm3 (0.7-4.5); Lymphocytes % 26.7 K/mm3 (10-50); Mean Corpuscular HGB Conc 30.6 g/dL (31.8-35.4); Mean Corpuscular Hemoglobin 25.4 pg (27.0-31.2); Mean Corpuscular Volume 82.8 fl (81-99); Mean Platelet Volume 7.6 fl (7.4-10.4); Monocytes # 0.5 K/mm3 (0.1-1.0); Monocytes % 4.9 % (1.7-9.3); Neutrophils # 6.1 K/mm3 (1.8-7.8); Neutrophils % 64.1 % (37.0-80.0); Platelet Count 353 K/mm3 (142-424); Red Blood Count 3.82 M/mm3 (4.20-5.40); Red Cell Distribution Width 16.6 % (11.5-17.5); White Blood Count 9.5 K/mm3 (4.8-10.8)
[2017-06-14 12:35] LABS: POC Glucose,Bedside 136 mg/dL (70-110)
[2017-06-14 12:46] LABS: Alanine Aminotransferase 17 U/L (12-78); Albumin Level 2.9 gm/dL (3.4-5.0); Albumin/Globulin Ratio 0.6 (1.1-1.8); Alkaline Phosphatase 94 U/L (46-116); Aspartate Amino Transferase 7 U/L (15-37); Bilirubin,Total 0.1 mg/dL (0.2-1.0); Blood Urea Nitrogen 31 mg/dL (7-18); Calcium 8.3 mg/dL (8.5-10.1); Carbon Dioxide 25 mmol/L (21.0-32.0); Chloride 103 mmol/L (98-107); Creatinine Clearance Estimated 79 mL/min (0-300); Creatinine,Serum 1.38 mg/dL (0.55-1.02); Estimated Glomerular Filt Rate 40 ml/min (>60); GFR (African American) 49 ML/MIN (>60); Globulin 5.1 gm/dl (1.3-3.2); Glucose 133 mg/dL (74-106); Sodium 135 mmol/L (136-145)
[2017-06-14 12:47] LABS: HCG Qualitative, Serum Negative (Negative)
--- NOTE | 2017-06-14 14:11 | SW/DCPLANNER ---
Spoke with Elvi from [facility] to inform them this patient has been admitted to [facility]. I will follow up with Elvi once patient is ready for discharge to resume services.
--- NOTE | 2017-06-14 14:39 | HMH.ANESCL ---
[facility] Anesthesia Checklist - Patient Identification Patient Identification: Arm Band - Structural Data Admitted From: Inpatient Planned Operative Procedure/s: wound debridement right bka stump Consent for Planned Operative Procedure(s) Verified: Yes Verified Documents: Surgical Consent - NPO Status Verified Time NPO: 00:00 - Additional verifications Anesthesia Reactions: No - Airway Assessment C-Spine Mobility Assessed: Yes TMJ Mobility Assessed: Yes - Neurological Assessment Level of Consciousness: Awake, Alert - Anesthesia Plan Anesthesia Risk discussed: Yes Anesthesia Plan: Verified ASA Class: III Anesthesia Type: General [facility] Anesthesia HX Medical History: Reports:: Chronic Obstructive Pulmonary Disease (COPD), Coronary Artery Disease, Diabetes Mellitus Type 2, Hyperlipidemia, Hypertension, Myocardial Infarction, Renal Disease, Renal Insufficiency, Valvular Heart Disease Denies:: Cancer, Diabetes Mellitus Type 1, Internal Pacemaker, MRSA, Seizures Other Medical History: Denies: Blood Transfusion Reaction Laterality Cases: Right: Other Other Surgeries: Yes: Angioplasty, CABG, Coronary Stent, Other. No: Pacemaker Amputation: Yes (rt bka) Fractures: No *Family Hx:: Stroke, Hypertension, Diabetes, Cancer, Kidney Disease, Anemia, Bleeding Disorder
--- NOTE | 2017-06-14 15:13 | P.PN_ITS ---
[facility] Anesthesia Record Part I Intake, IV Amount: 1,000 Estimated blood loss (mL): 50 Urine output (mL): 0 Blood Pressure: 140/80 SaO2: 94 Pulse Rate: 105 Respiratory Rate: 12 Temperature: 98.6 F Patient is:: Awake, Stable Stable to PACU at:: 15:10
--- NOTE | 2017-06-14 15:13 | HMH.ANESII ---
[facility] Anesthesia Record Part II Discharge Time: 15:40 Destination: floor PACU nurse assessment reviewed?: Yes Patient Condition:: Good Anesthesia Complications:: None
--- NOTE | 2017-06-14 17:23 | SUR.OPER ---
3/8 pinrose drain inserted into debrided tissue of bka
--- NOTE | 2017-06-14 18:28 | SUR.PHASEI ---
Chuy Nichols CRNA gave verbal order for pt to receive morphine 4 mg IVP at 1517 for pain 10 plus r/t debridement of right bka, given at 1520. Pt told Chuy Nichols CRNA that demerol 25 mg IVP works well for her pain, ELECTRONICS COMMODITY MANAGER suggested that pt receive demerol 25 mg IVP for her pain per PACU protocol. Pt received demerol 25 mg IVP at 1524 for pain 10 plus of 10. Pt very anxious after approximately 10 minutes of sleeping. Called ELECTRONICS COMMODITY MANAGER for order of versed 2 mg IVP, order received. Versed 1 mg IVP given at 1537. Pt slept for approximately 5 minutes and woke to c/o pain 10 plus of 10. At 1542 pt received demerol 25 mg IVP. Called and gave report to Doreen Hurtado RN at 1604, pt anxious. Pt received versed 1 mg IVP before handing over care to Doreen Hurtado RN, at pt's bedside after discussing pt's need for medication with Doreen.
--- NOTE | 2017-06-14 19:54 | HMH.OPNOTE ---
Date of procedure: 07/06/17 Pre-op Diagnosis:: Postoperative infection below-knee outpatient stump, right Post-op Diagnosis:: Postoperative infection below-knee outpatient stump, right Procedure performed:: Wound debridement and washout, right BKA stump Surgeon:: Obie Vides MD Software Requirements Engineer(s):: Jag Christina/ Hanh Townsend PIPING DESIGN SPECIALIST:: Luis Conroy Anesthesia: LMA Estimated blood loss (mL): 50 Clinical Note:: Patient is a 52-year-old female who underwent a right below-knee amputation surgery by Dr. Blackburn for diabetic foot infection with osteomyelitis on 05/21/2017. About 10 days after surgery she fell at home causing a partial wound dehiscence. Subsequently she developed wound infection which has failed to respond satisfactorily to nonsurgical management so far. She was seen by Dr. Blackburn about a week ago and wound cultures are positive for staph epidermidis and E. coli infection. She had ORITAVANCIN infusion on 07 June and was prescribed ERTAPENEM by her primary care physician couple of days ago to cover for the E. coli infection. Patient says she is having some issues with her insurance provider and has not yet started the ertapenem. She reports significant pain in her right BKA amputation stump and is taking oral Percocet. No history of any fevers, chills or rigors. She is eating and drinking well. She is a chronic smoker and diabetes with known peripheral vascular disease. In spite of repeated advice by various providers, she continues to smoke. She is very well aware of the consequences of her continued smoking. Evaluation in the office showed obvious infection of the BKA stump with erythema, swelling, tenderness, active discharge, sloughing and necrosis of the suture line. Following a detailed discussion in the office, patient wished to proceed with wound debridement/washout. I have discussed the details of the procedure, risks and benefits and alternatives in detail. The complications discussed include but are not limited to- infection, bleeding, injury to nerves and blood vessels, wound healing problems, ring sequestrum, likely need for further surgery in future and anesthetic problems including stroke, heart attack, and . Following a lengthy and detailed discussion patient decided to proceed with the surgery today. I have discussed with Dr. Kelly's team regarding her management and he kindly agreed to admit her under his service for management of the medical problems. I have again strongly recommended that she should STOP SMOKING COMPLETELY and explained the rationale behind this. All her questions were answered and she verbalized a good understanding. The limb was appropriately marked and the consent form was reviewed and signed. Operative findings:: The BKA stump showed a small area of wound dehiscence in the middle of the suture line; over the rest of the suture line, the skin edges are necrotic. On removal of the molina and opening the deep fascial layer, there is thin foul-smelling discharge coming from the wound. We excised the necrotic tissue and then opened the deeper layers. On opening the muscular plane, there is further thin foul-smelling discharge noted. We obtained aerobic and anaerobic culture swabs from deep inside the wound. Part of the muscle appeared unhealthy and necrotic. The bone ends appeared healthy. Operative note:: The patient was brought to the operating room and placed supine on the operating table. All the bony prominences were appropriately padded. No tourniquet was utilized. A general anesthesia was administered by the director of strategy & mobile. 500 mg of ertapenem was administered for preoperative prophylaxis. The right below-knee amputation stump was prepped and draped in a usual sterile fashion. A preprocedure timeout was performed as per hospital protocol. On examination of the amputation stump, there is a small area of wound dehiscence in the middle of the suture line; over the rest of the suture line, the
--- NOTE | 2017-06-14 19:57 | P.OP_ITS ---
Date of procedure: 07/06/17 Pre-op Diagnosis:: Postoperative infection below-knee outpatient stump, right Post-op Diagnosis:: Postoperative infection below-knee outpatient stump, right Procedure performed:: Wound debridement and washout, right BKA stump Surgeon:: Obie Vides MD Ip Architect(s):: Jag Christina/ Hanh Townsend CLIN NURSE:: Luis Conroy Anesthesia: LMA Estimated blood loss (mL): 50 Clinical Note:: Patient is a 52-year-old female who underwent a right below-knee amputation surgery by Dr. Blackburn for diabetic foot infection with osteomyelitis on 2017. About 10 days after surgery she fell at home causing a partial wound dehiscence. Subsequently she developed wound infection which has failed to respond satisfactorily to nonsurgical management so far. She was seen by Dr. Blackburn about a week ago and wound cultures are positive for staph epidermidis and E. coli infection. She had ORITAVANCIN infusion on 07 June and was prescribed ERTAPENEM by her primary care physician couple of days ago to cover for the E. coli infection. Patient says she is having some issues with her insurance provider and has not yet started the ertapenem. She reports significant pain in her right BKA amputation stump and is taking oral Percocet. No history of any fevers, chills or rigors. She is eating and drinking well. She is a chronic smoker and diabetes with known peripheral vascular disease. In spite of repeated advice by various providers, she continues to smoke. She is very well aware of the consequences of her continued smoking. Evaluation in the office showed obvious infection of the BKA stump with erythema, swelling, tenderness, active discharge, sloughing and necrosis of the suture line. Following a detailed discussion in the office, patient wished to proceed with wound debridement/washout. I have discussed the details of the procedure, risks and benefits and alternatives in detail. The complications discussed include but are not limited to- infection, bleeding, injury to nerves and blood vessels , wound healing problems, ring sequestrum, likely need for further surgery in future and anesthetic problems including stroke, heart attack, and . Following a lengthy and detailed discussion patient decided to proceed with the surgery today. I have discussed with Dr. Kelly's team regarding her management and he kindly agreed to admit her under his service for management of the medical problems. I have again strongly recommended that she should STOP SMOKING COMPLETELY and explained the rationale behind this. All her questions were answered and she verbalized a good understanding. The limb was appropriately marked and the consent form was reviewed and signed. Operative findings:: The BKA stump showed a small area of wound dehiscence in the middle of the suture line; over the rest of the suture line, the skin edges are necrotic. On removal of the molina and opening the deep fascial layer, there is thin foul- smelling discharge coming from the wound. We excised the necrotic tissue and then opened the deeper layers. On opening the muscular plane, there is further thin foul-smelling discharge noted. We obtained aerobic and anaerobic culture swabs from deep inside the wound. Part of the muscle appeared unhealthy and necrotic. The bone ends appeared healthy. Operative note:: The patient was brought to the operating room and placed supine on the operating table. All the bony prominences were appropriately padded. No tourniquet was utilized. A general anesthesia was administered by the personnel recruiter. 500 mg of ertapenem was administered for preoperative prophylaxis. The right below-knee amputation stump was prepped and draped in a usual sterile [facility]
[2017-06-14 21:22] LABS: POC Glucose,Bedside 419 mg/dL (70-110)
[2017-06-15] VITALS (7 sets, daily range): BP systolic 103–138; BP diastolic 42–70; PULSE 64–77; RESP 14–20; TEMP 36.4–37.1; O2SAT 97–99
--- NOTE | 2017-06-15 04:28 | PC.NURSE ---
PT HAS BEEN AWAKE ALL SHIFT. MAINLY SITTING ON SIDE OF BED. HAVE ENCOURAGED PT TO LAY WITH STUMP ELEVATED ON PILLOWS. PT REQUESTING PAIN MED EVERY 4 AND 6 HOURS. OXYCODONE ROTATING WITH IV MORPHINE. PT TALKATIVE, HAS BEEN NONCOMPLIANT WITH DIET. ATE BIG MAC AND 2 PIECES OF PIE FROM [facility]. PT CONSUMING DIET SODAS FREQUENTLY. PT IS VOIDING PER BSC WITHOUT DIFFICULTY.
[2017-06-15 06:29] LABS: POC Glucose,Bedside 164 mg/dL (70-110)
[2017-06-15 06:34] LABS: Basophils % 0.3 % (0.1-2.0); Eosinophils % 0.2 % (0.1-12.0); Lymphocytes # 1.3 K/mm3 (0.7-4.5); Lymphocytes % 15.6 K/mm3 (10-50); Mean Corpuscular HGB Conc 30.6 g/dL (31.8-35.4); Mean Corpuscular Hemoglobin 25.3 pg (27.0-31.2); Mean Corpuscular Volume 82.8 fl (81-99); Mean Platelet Volume 7.6 fl (7.4-10.4); Monocytes # 0.5 K/mm3 (0.1-1.0); Monocytes % 6.1 % (1.7-9.3); Neutrophils # 6.7 K/mm3 (1.8-7.8); Neutrophils % 77.9 % (37.0-80.0); Platelet Count 289 K/mm3 (142-424); Red Blood Count 3.26 M/mm3 (4.20-5.40); Red Cell Distribution Width 16.3 % (11.5-17.5); White Blood Count 8.6 K/mm3 (4.8-10.8)
[2017-06-15 06:41] LABS: Hemoglobin 8.4 g/dL (12.2-16.2)
[2017-06-15 06:53] LABS: Anion Gap 12.3 mEq/L (5-15); Blood Urea Nitrogen 34 mg/dL (7-18); Carbon Dioxide 24 mmol/L (21.0-32.0); Chloride 103 mmol/L (98-107); Creatinine Clearance Estimated 32 mL/min (0-300); Creatinine,Serum 1.64 mg/dL (0.55-1.02); Estimated Glomerular Filt Rate 33 ml/min (>60); GFR (African American) 40 ML/MIN (>60); Glucose 158 mg/dL (74-106); Potassium 5.3 mmoL/L (3.5-5.1); Sodium 134 mmol/L (136-145)
--- NOTE | 2017-06-15 07:37 | HMH.HP ---
*Admission Date: 06/14/17 *Chief complaint: wd infection *History of present illness: this wf who has iddm has had recent bka amputation and is followed by pcp and ortho - she saw ortho and they wished to admit pt and do surg eval of wd - dr hollis with drains placed and see his op note- pt reports doing ok with her diet and diabetes but feels ill and has ongoing back pain and weakness - [facility] History I have reviewed the patient's past medical history: Yes Medical History: Reports:: Chronic Obstructive Pulmonary Disease (COPD), Coronary Artery Disease, Diabetes Mellitus Type 2, Hyperlipidemia, Hypertension, Myocardial Infarction, Renal Disease, Renal Insufficiency, Valvular Heart Disease Denies:: Cancer, Diabetes Mellitus Type 1, Internal Pacemaker, MRSA, Seizures Other Medical History: Denies: Blood Transfusion Reaction Laterality Cases: Right: Other Other Surgeries: Yes: Angioplasty, CABG, Coronary Stent, Other. No: Pacemaker Amputation: Yes (rt bka) Fractures: No - *Social History Educational Level: Completed GED/General Educational Development Smoking Status: Current every day smoker Tobacco Type: cigarettes # Packs/Day (cigarettes): 1 #Yrs smoked (if former smoker): 30 Alcohol Intake: never Substance Use Type: denies use Occupational Status: disabled Housing: apartment Household Members: none - Psychiatric History Expresses thoughts of harming self/others: None Suicide Plan Description: No Plan *Family Hx:: Stroke, Hypertension, Diabetes, Cancer, Kidney Disease, Anemia, Bleeding Disorder Review of Systems - Review of Systems Review of systems:: pertinent systems reviewed and negative unless documented below - Constitutional Reports weakness, Denies fever(s) - Eyes Denies change in vision - ENT Denies sore throat - *Cardiovascular Denies chest pain - *Respiratory Denies chest congestion, Denies cough - *Gastrointestinal Denies abdominal pain - *Genitourinary Denies blood in urine - *Musculoskeletal Reports joint pain, Reports back pain, Denies joint swelling, Denies neck pain - Integumentary/Breasts Reports other (has infected rt stump) - *Neurologic Denies seizure-like activity - Psychiatric Denies depression Meds Home Medications Medication Instructions Recorded Confirmed Type aspirin 81 mg tablet,delayed 81 mg PO DAILY 04/05/17 06/14/17 History release clopidogrel 75 mg tablet 75 mg PO DAILY 04/05/17 06/14/17 History digoxin 125 mcg tablet 125 mcg PO DAILY 04/05/17 06/14/17 History metoprolol tartrate 25 mg tablet 25 mg PO BID 04/05/17 06/14/17 History Baclofen [Lioresal 10mg tablet] 10 mg PO TID 06/06/17 06/14/17 History Insulin Glargine,Hum.rec.anlog 45 unit SQ BID 06/06/17 06/14/17 History [Lantus Insulin 100units/mL 10mL vial] Insulin Lispro [Humalog] 0 unit SQ TID PRN MDD sliding scale 06/06/17 06/14/17 History Ondansetron [Zofran 4mg ODT] 4 mg PO TID 06/06/17 06/14/17 History Allergies Allergy/AdvReac Type Severity Reaction Status Date / Time acetaminophen Allergy Unknown Vomiting Verified 06/14/17 10:55 [From Darvocet-N] amoxicillin [From AUGMENTIN] Allergy Unknown Verified 06/14/17 10:55 clavulanic acid Allergy Unknown Verified 06/14/17 10:55 [From AUGMENTIN] codeine [CODEINE] Allergy Unknown NA-NAUSEA/V Verified 06/14/17 10:55 OMITING erythromycin base Allergy Unknown Vomiting Verified 06/14/17 10:55 [ERYTHROMYCIN BASE] Penicillins [PENICILLINS] Allergy Unknown Hives, Verified 06/14/17 10:55 Vomiting propoxyphene Allergy Unknown Vomiting Verified 06/14/17 10:55 [From Darvocet-N] CEPHALOSPORINS Allergy Unknown Anaphylaxis Uncoded 06/14/17 10:55 shock Exam Vital signs and Labs for Last 24 Hours: Temp Pulse Resp BP Pulse Ox 98.4 F 77 20 138/70 98 06/15/17 07:25 06/15/17 07:25 06/15/17 07:25 06/15/17 07:25 06/15/17 07:25 Laboratory Results - last 24 hr 06/14/17 12:19: POC Glucose 136 03
--- NOTE | 2017-06-15 07:41 | P.HP_ITS ---
*Admission Date: 06/14/17 *Chief complaint: wd infection *History of present illness: this wf who has iddm has had recent bka amputation and is followed by pcp and ortho - she saw ortho and they wished to admit pt and do surg eval of wd - dr hollis with drains placed and see his op note- pt reports doing ok with her diet and diabetes but feels ill and has ongoing back pain and weakness - [facility] History I have reviewed the patient's past medical history: Yes Medical History: Reports:: Chronic Obstructive Pulmonary Disease (COPD), Coronary Artery Disease, Diabetes Mellitus Type 2, Hyperlipidemia, Hypertension , Myocardial Infarction, Renal Disease, Renal Insufficiency, Valvular Heart Disease Denies:: Cancer, Diabetes Mellitus Type 1, Internal Pacemaker, MRSA, Seizures Other Medical History: Denies: Blood Transfusion Reaction Laterality Cases: Right: Other Other Surgeries: Yes: Angioplasty, CABG, Coronary Stent, Other. No: Pacemaker Amputation: Yes (rt bka) Fractures: No - *Social History Educational Level: Completed GED/General Educational Development Smoking Status: Current every day smoker Tobacco Type: cigarettes # Packs/Day (cigarettes): 1 #Yrs smoked (if former smoker): 30 Alcohol Intake: never Substance Use Type: denies use Occupational Status: disabled Housing: apartment Household Members: none - Psychiatric History Expresses thoughts of harming self/others: None Suicide Plan Description: No Plan *Family Hx:: Stroke, Hypertension, Diabetes, Cancer, Kidney Disease, Anemia, Bleeding Disorder Review of Systems - Review of Systems Review of systems:: pertinent systems reviewed and negative unless documented below - Constitutional Reports weakness, Denies fever(s) - Eyes Denies change in vision - ENT Denies sore throat - *Cardiovascular Denies chest pain - *Respiratory Denies chest congestion, Denies cough - *Gastrointestinal Denies abdominal pain - *Genitourinary Denies blood in urine - *Musculoskeletal Reports joint pain, Reports back pain, Denies joint swelling, Denies neck pain - Integumentary/Breasts Reports other (has infected rt stump) - *Neurologic Denies seizure-like activity - Psychiatric Denies depression Meds Home Medications Medication Instructions Recorded Confirmed Type aspirin 81 mg tablet,delayed 81 mg PO DAILY 04/05/17 06/14/17 History release clopidogrel 75 mg tablet 75 mg PO DAILY 04/05/17 06/14/17 History digoxin 125 mcg tablet 125 mcg PO DAILY 04/05/17 06/14/17 History metoprolol tartrate 25 mg tablet 25 mg PO BID 04/05/17 06/14/17 History Baclofen [Lioresal 10mg tablet] 10 mg PO TID 06/06/17 06/14/17 History Insulin Glargine,Hum.rec.anlog 45 unit SQ BID 06/06/17 06/14/17 History [Lantus Insulin 100units/mL 10mL vial] Insulin Lispro [Humalog] 0 unit SQ TID PRN MDD sliding scale 06/06/17 06/14/17 History Ondansetron [Zofran 4mg ODT] 4 mg PO TID 06/06/17 06/14/17 History Allergies Allergy/AdvReac Type Severity Reaction Status Date / Time acetaminophen Allergy Unknown Vomiting Verified 06/14/17 10:55 [From Darvocet-N] amoxicillin [From AUGMENTIN] Allergy Unknown Verified 06/14/17 10:55 clavulanic acid Allergy Unknown Verified 06/14/17 10:55 [From AUGMENTIN] codeine [CODEINE] Allergy Unknown NA-NAUSEA/V Verified 06/14/17 10:55 OMITING erythromycin base Allergy Unknown Vo
--- NOTE | 2017-06-15 09:44 | HMH.PHAVTE ---
[facility] Pharmacy VTE Monitoring - Patient Demographics Admission date: 06/14/17 Report Date: 06/15/17 Time: 09:44 Allergies/Adverse Reactions: Patient Allergies acetaminophen [From Darvocet-N] Allergy (Unknown, Verified 06/14/17 10:55) Vomiting amoxicillin [From AUGMENTIN] Allergy (Unknown, Verified 06/14/17 10:55) clavulanic acid [From AUGMENTIN] Allergy (Unknown, Verified 06/14/17 10:55) codeine [CODEINE] Allergy (Unknown, Verified 06/14/17 10:55) NA-NAUSEA/VOMITING erythromycin base [ERYTHROMYCIN BASE] Allergy (Unknown, Verified 06/14/17 10:55) Vomiting Penicillins [PENICILLINS] Allergy (Unknown, Verified 06/14/17 10:55) Hives, Vomiting propoxyphene [From Darvocet-N] Allergy (Unknown, Verified 06/14/17 10:55) Vomiting CEPHALOSPORINS Allergy (Unknown, Uncoded 06/14/17 10:55) Anaphylaxis shock Height: 1.57 m Weight: 106.254 kg Patient Problems: Current Active Problems Anemia (Acute) - VTE Risk Labs: VTE Related Lab Results Hgb 8.4 g/dL (12.2-16.2) L D 06/15/17 06:15 Hct 27.0 % (37.0-47.0) L 06/15/17 06:15 Plt Count 289 K/mm3 (142-424) 06/15/17 06:15 BUN 34 mg/dL (7-18) H 06/15/17 06:05 Creatinine 1.64 mg/dL (0.55-1.02) H 06/15/17 06:05 Estimated Creat Clear 32 mL/min (0-300) 06/15/17 06:05 Was VTE Risk Assessment Performed: Yes VTE Risk Level: Low Risk - Prophylaxis VTE Prophylaxis Ordered?: Yes Types of VTE Prophylaxis: IPCS Knee High Location of Applied Device: Bilateral Lower Extremeties
[2017-06-15 12:16] LABS: POC Glucose,Bedside 183 mg/dL (70-110)
--- NOTE | 2017-06-15 15:06 | PC.NURSE ---
Pt resting in the bed no complaints at this time. Noted some pain of 6-8 t/o shift. States that it is relieved with her po pain medication ordered. Will continue to monitor
[2017-06-15 17:15] LABS: POC Glucose,Bedside 171 mg/dL (70-110)
--- NOTE | 2017-06-15 19:30 | P.PN_ITS ---
Subjective Date: 06/15/17 Time: 19:00 Principal diagnosis: Postoperative infection right BKA stump Interval history: 52-year-old female postoperative day 1 following debridement and washout for infected right BKA stump. She says she is doing well and is eating and drinking well. She reports intermittent moderate to severe pain which is well controlled with medication. No history of any fevers, chills or rigors. No history of any nausea or vomiting. Nursing staff says she is noncompliant with her diet. PN: Obj Ex Vital signs: Temp Pulse Resp BP Pulse Ox 98.5 F 69 20 112/61 97 06/15/17 15:53 06/15/17 15:53 06/15/17 15:53 06/15/17 15:53 06/15/17 15:53 Narrative: Laboratory Results - last 24 hr 06/14/17 20:32: POC Glucose 419 06/15/17 06:05: Sodium 134 L, Potassium 5.3 H D, Chloride 103, Carbon Dioxide 24 , Anion Gap 12.3, BUN 34 H, Creatinine 1.64 H, Estimated Creat Clear 32, Estimated GFR 33 L, Est GFR ( Amer) 40 L, Glucose 158 H 06/15/17 06:15: WBC 8.6, RBC 3.26 L, Hgb 8.4 L D, Hct 27.0 L, MCV 82.8, MCH 25.3 L, MCHC 30.6 L, RDW 16.3, Plt Count 289, MPV 7.6, Neut % (Auto) 77.9, Lymph % (Auto) 15.6, [place] % (Auto) 6.1, Eos % (Auto) 0.2, Baso % (Auto) 0.3, Neut # (Auto) 6.7, Lymph # (Auto) 1.3, [place] # (Auto) 0.5, Eos # (Auto) 0.0, Baso # (Auto) 0.0 06/15/17 06:21: POC Glucose 164 06/15/17 12:05: POC Glucose 183 06/15/17 16:05: POC Glucose 171 - Constitutional no acute distress, obese - Routine HEENT Exam Head: Present: normocephalic, atraumatic Eye: Present: EOMI ENT: Present: mucous membranes moist - Routine Neck Exam Present: supple, full ROM - Routine Respiratory Exam Present: CTA bilaterally - Routine Cardiovascular Exam Present: RRR, Normal S1, Normal S2 - Routine Abdominal Exam Present: soft, normoactive bowel sounds - Routine Extremities Exam Comments: On examination of her right lower extremity the dressings are clean and dry and intact over the BKA stump. No soakage of dressings noted. She demonstrated good range of right knee movements. - Routine Skin Exam Present: intact, normal turgor - Routine Neurological Exam Present: alert, oriented X3, CN II-XII intact - Routine Psychiatric Exam Present: normal affect, normal thought process Progress Note: A&P (1) Status post below knee amputation of right lower extremity Status: Acute Assessment and plan: Reviewed the operative findings and procedure performed with the patient. Encouraged her to keep the leg elevated and mobilize the knee joint intermittently. Continue IV antibiotics. Await intraoperative culture culture results before any changes to the antibiotic regimen. Medical management and DVT prophylaxis as per Dr. Kelly's advice. Current Visit: No
[2017-06-15 21:15] LABS: POC Glucose,Bedside 229 mg/dL (70-110)
[2017-06-16 04:00] VITALS: BP 123/63; PULSE 66; RESP 18; TEMP 36.6; O2SAT 99
--- NOTE | 2017-06-16 04:28 | PC.NURSE ---
PT HAS SLEPT MORE TONIGHT. RECEIVES SCHEDULED PAIN MED. PRN PAIN MED GIVEN TIMES 1. PT VOIDING PER BSC. REPORTED BM THIS SHIFT. RIGHT STUMP WITH SHARDA Rollins,D,I. PT CONTINUES TO CONSUME MANY DIET SODAS.
[2017-06-16 06:33] LABS: POC Glucose,Bedside 132 mg/dL (70-110)
[2017-06-16 07:35] VITALS: BP 125/70; PULSE 66; RESP 20; TEMP 36.9; O2SAT 100
--- NOTE | 2017-06-16 07:56 | HMH.ACPN2 ---
Internal Medicine - PN: Subj *Date: 06/16/17 *Time: 07:56 Interval history: doing better this am - pt encouraged to ambulate with her walker - labs pending Exam Vital signs and Labs for Last 24 Hours: Temp Pulse Resp BP Pulse Ox 98.4 F 66 20 125/70 100 06/16/17 07:35 06/16/17 07:35 06/16/17 07:35 06/16/17 07:35 06/16/17 07:35 Laboratory Results - last 24 hr 06/15/17 12:05: POC Glucose 183 06/15/17 16:05: POC Glucose 171 06/15/17 19:56: POC Glucose 229 06/16/17 06:23: POC Glucose 132 I & O for Last 24 hours: Intake & Output 06/13/17 06/14/17 06/15/17 06/16/17 11:59 11:59 11:59 12:59 Intake Total 2772 / 2772 3454 / 3454 Output Total 1000 / 1000 Balance 2772 / 2772 2454 / 2454 Weight 225 lb 234 lb 4 oz Microbiology Reports for the Last 24 Hours: Microbiology 06/14/17 13:43 Leg,Right Gram Stain - Final 06/14/17 13:43 Leg,Right Wound Culture - Preliminary Gram Negative Rods Gram Negative Rods#2 - Constitutional no acute distress - *Routine HEENT Exam Head: Present: normocephalic Eye: Present: EOMI, PERRL ENT: Present: mucous membranes dry - *Routine Neck Exam Absent: JVD - *Routine Respiratory Exam Absent: respiratory distress - *Routine Cardiovascular Exam Present: RRR - *Routine Abdominal Exam Present: soft - *Routine Extremities Exam Comments: s/p rt bka with dressing on - *Routine Skin Exam Present: dry - *Routine Neurological Exam Present: alert, oriented X3, CN II-XII intact - Routine Psychiatric Exam Present: normal affect Assessment and Plan (1) Status post below knee amputation of right lower extremity Current visit: No Status: Acute Category: Surgical Code(s): Z89.511 - Acquired absence of right leg below knee
[2017-06-16 07:57] LABS: Basophils # 0.1 K/mm3 (0-0.2); Eosinophils # 0.2 K/mm3 (0.0-0.4); Eosinophils % 2.4 % (0.1-12.0); Hematocrit 26.9 % (37.0-47.0); Hemoglobin 8.2 g/dL (12.2-16.2); Lymphocytes # 2.7 K/mm3 (0.7-4.5); Lymphocytes % 33.9 K/mm3 (10-50); Mean Corpuscular HGB Conc 30.5 g/dL (31.8-35.4); Mean Corpuscular Hemoglobin 25.6 pg (27.0-31.2); Mean Corpuscular Volume 83.9 fl (81-99); Mean Platelet Volume 7.6 fl (7.4-10.4); Monocytes # 0.5 K/mm3 (0.1-1.0); Monocytes % 5.6 % (1.7-9.3); Neutrophils # 4.6 K/mm3 (1.8-7.8); Platelet Count 282 K/mm3 (142-424); Red Cell Distribution Width 16.5 % (11.5-17.5)
[2017-06-16 08:00] LABS: Anion Gap 10.2 mEq/L (5-15); Blood Urea Nitrogen 30 mg/dL (7-18); Carbon Dioxide 25 mmol/L (21.0-32.0); Chloride 104 mmol/L (98-107); Creatinine Clearance Estimated 35 mL/min (0-300); Creatinine,Serum 1.51 mg/dL (0.55-1.02); Estimated Glomerular Filt Rate 36 ml/min (>60); GFR (African American) 44 ML/MIN (>60); Glucose 116 mg/dL (74-106); Potassium 4.2 mmoL/L (3.5-5.1); Sodium 135 mmol/L (136-145)
[2017-06-16 08:46] VITALS: PULSE 66
[2017-06-16 09:10] LABS: POC Glucose,Bedside 203 mg/dL (70-110)
[2017-06-16 11:33] LABS: POC Glucose,Bedside 162 mg/dL (70-110)
[2017-06-16 15:32] VITALS: BP 134/61; PULSE 65; RESP 20; TEMP 36.9; O2SAT 96
[2017-06-16 16:40] LABS: POC Glucose,Bedside 134 mg/dL (70-110)
--- NOTE | 2017-06-16 19:14 | PC.NURSE ---
REPORT GIVEN TO COLBY CARLIN
[2017-06-16 19:58] VITALS: BMI 43.1
[2017-06-16 20:00] VITALS: BP 124/64; PULSE 68; RESP 18; TEMP 36.3; O2SAT 97
--- NOTE | 2017-06-16 20:18 | P.PN_ITS ---
Subjective Date: 06/16/17 Time: 19:30 Principal diagnosis: Postoperative infection right BKA stump Interval history: Patient is second postoperative day after surgical debridement and washout of the infected right BKA stump. Says she is doing well and her pain is well controlled. No history of any fevers, chills or rigors. She is eating and drinking well. PN: Obj Ex Vital signs: Temp Pulse Resp BP Pulse Ox 98.5 F 65 20 134/61 96 06/16/17 15:32 06/16/17 15:32 06/16/17 15:32 06/16/17 15:32 06/16/17 15:32 Narrative: Laboratory Results - last 24 hr 06/15/17 19:56: POC Glucose 229 06/16/17 06:23: POC Glucose 132 06/16/17 07:32: WBC 8.0, RBC 3.20 L, Hgb 8.2 L, Hct 26.9 L, MCV 83.9, MCH 25.6 L , MCHC 30.5 L, RDW 16.5, Plt Count 282, MPV 7.6, Neut % (Auto) 57.0, Lymph % ( Auto) 33.9, [place] % (Auto) 5.6, Eos % (Auto) 2.4, Baso % (Auto) 1.0, Neut # (Auto ) 4.6, Lymph # (Auto) 2.7, [place] # (Auto) 0.5, Eos # (Auto) 0.2, Baso # (Auto) 0.1 06/16/17 07:32: Sodium 135 L, Potassium 4.2 D, Chloride 104, Carbon Dioxide 25 , Anion Gap 10.2, BUN 30 H, Creatinine 1.51 H, Estimated Creat Clear 35, Estimated GFR 36 L, Est GFR ( Amer) 44 L, Glucose 116 H 06/16/17 08:56: POC Glucose 203 06/16/17 11:20: POC Glucose 162 06/16/17 16:22: POC Glucose 134 Microbiology 06/14/17 13:43 Gram Stain - Final Leg,Right Wound Culture - Preliminary Gram Negative Rods Gram Negative Rods#2 - Constitutional no acute distress - Routine HEENT Exam Head: Present: normocephalic Eye: Present: EOMI, PERRL ENT: Present: mucous membranes moist - Routine Neck Exam Present: supple, full ROM - Routine Respiratory Exam Present: CTA bilaterally - Routine Cardiovascular Exam Present: RRR, Normal S1, Normal S2 - Routine Abdominal Exam Present: soft, normoactive bowel sounds - Routine Extremities Exam Comments: On examination of the right lower extremity, there are dressings over the right BKA stump are clean, dry and intact. We have changed the dressings today-there is moderate soaking of the dressings. I have removed both the drains from the suture line. Small amount of drainage noted. The stump looks slightly swollen and is tender. The vascularity of the skin flaps appears adequate. She has good range of knee movements. - Routine Skin Exam Present: intact, normal turgor - Routine Neurological Exam Present: alert, oriented X3, CN II-XII intact - Routine Psychiatric Exam Present: normal affect, normal thought process, cooperative Progress Note: A&P (1) Status post below knee amputation of right lower extremity Status: Acute Assessment and plan: Reviewed the findings and progress with the patient. Encouraged her to keep the leg elevated and mobilize the knee joint intermittently. Continue IV antibiotics. Await intraoperative culture culture results before any changes to the antibiotic regimen. Medical management and DVT prophylaxis as per Dr. Kelly's advice. Current Visit: Yes
[2017-06-16 21:14] LABS: POC Glucose,Bedside 155 mg/dL (70-110)
[2017-06-17] VITALS (7 sets, daily range): BP systolic 110–148; BP diastolic 50–76; PULSE 55–76; RESP 16–20; TEMP 36.1–36.6; O2SAT 94–100
--- NOTE | 2017-06-17 01:52 | PC.NURSE ---
Patient laying in bed resting at this time. Has slept well, Assist with Dr Vides at beginning of shift with dressing change. Tolerated well. Dressing remains c/d/i. Has been up to bedside toilet independently. have encouraged to use IS and deep breathing exercises to promote lung expansion. Lungs are clear, resp even and nonlabored. Has no needs at this time. IV is patent, bed locked in low position, side rails up x 2. Call light within reach. Encouraged to call out for needs.
[2017-06-17 06:24] LABS: POC Glucose,Bedside 108 mg/dL (70-110)
--- NOTE | 2017-06-17 07:22 | PC.NURSE ---
Report received from Alexandro Nix RN
[2017-06-17 08:51] LABS: Basophils % 0.6 % (0.1-2.0); Eosinophils # 0.4 K/mm3 (0.0-0.4); Eosinophils % 5.1 % (0.1-12.0); Hematocrit 28.3 % (37.0-47.0); Hemoglobin 8.8 g/dL (12.2-16.2); Lymphocytes # 1.7 K/mm3 (0.7-4.5); Lymphocytes % 23.8 K/mm3 (10-50); Mean Corpuscular HGB Conc 31.1 g/dL (31.8-35.4); Mean Corpuscular Hemoglobin 25.6 pg (27.0-31.2); Mean Corpuscular Volume 82.5 fl (81-99); Mean Platelet Volume 7.5 fl (7.4-10.4); Monocytes # 0.4 K/mm3 (0.1-1.0); Monocytes % 5.1 % (1.7-9.3); Neutrophils # 4.6 K/mm3 (1.8-7.8); Neutrophils % 65.4 % (37.0-80.0); Platelet Count 280 K/mm3 (142-424); Red Blood Count 3.43 M/mm3 (4.20-5.40); Red Cell Distribution Width 16.3 % (11.5-17.5)
[2017-06-17 11:23] LABS: POC Glucose,Bedside 122 mg/dL (70-110)
--- NOTE | 2017-06-17 13:36 | PC.NURSE ---
Patient requesting to discontinue fluids. notified.
--- NOTE | 2017-06-17 13:57 | SW/DCPLANNER ---
Visited this patient this afternoon to discuss discharge plans. Patient stated that she was doing well at home with home health until the infection started. Patient stated that she would like for me to pull some strings for housing for her. I informed patient that I can not pull any strings with housing but informed her that she needs to contact the phone number I gave her during previous admission for [facility] due to waiting list being so long. Patient stated that she did not recall giving me a number and would like the number again. I have present patient with [facility] phone number and told her that it was important that she call soon considering how long waiting list. I will follow up with this patient and Margaret of at time of discharge.
--- NOTE | 2017-06-17 14:10 | PC.NURSE ---
Intradisciplinary meeting completed with Nursing, Dietary, and care management in attendance. Discussed pt's care and discharge status.
--- NOTE | 2017-06-17 15:19 | HMH.ORTHPN ---
Subjective Date: 06/17/17 Time: 12:45 Principal diagnosis: Postoperative infection right BKA stump Interval history: Patient says she is doing well and reports improvement from yesterday. She is 3 days status post wound debridement/washout for infected right BKA stump. No history of any fevers, chills or rigors. She is eating and drinking well. PN: Obj Ex Vital signs: Temp Pulse Resp BP Pulse Ox 97.7 F 76 18 144/76 100 06/17/17 08:25 06/17/17 09:39 06/17/17 08:25 06/17/17 08:25 06/17/17 08:25 Narrative: Laboratory Results - last 24 hr 06/16/17 16:22: POC Glucose 134 06/16/17 20:44: POC Glucose 155 06/17/17 05:58: POC Glucose 108 06/17/17 08:30: WBC 7.0, RBC 3.43 L, Hgb 8.8 L, Hct 28.3 L, MCV 82.5, MCH 25.6 L, MCHC 31.1 L, RDW 16.3, Plt Count 280, MPV 7.5, Neut % (Auto) 65.4, Lymph % (Auto) 23.8, [place] % (Auto) 5.1, Eos % (Auto) 5.1, Baso % (Auto) 0.6, Neut # (Auto) 4.6, Lymph # (Auto) 1.7, [place] # (Auto) 0.4, Eos # (Auto) 0.4, Baso # (Auto) 0.0 06/17/17 11:06: POC Glucose 122 Microbiology 06/14/17 13:43 Leg,Right Gram Stain - Final 06/14/17 13:43 Leg,Right Wound Culture - Final Klebsiella oxytoca Morganella morganii I have reviewed the sensitivities and both these organisms are sensitive to only cefepime, ertapenem and piperacillin/tazobactam. At the moment, she is receiving 1 g of IV ertapenem daily. - Constitutional no acute distress - Routine HEENT Exam Eye: Present: EOMI, PERRL ENT: Present: mucous membranes moist - Routine Respiratory Exam Present: CTA bilaterally - Routine Cardiovascular Exam Present: RRR, Normal S1, Normal S2 - Routine Abdominal Exam Present: soft, normoactive bowel sounds - Routine Extremities Exam Comments: On examination of her right lower extremity, the dressings over the BKA stump are clean dry and intact. She has good range of active knee movements. - Routine Skin Exam Present: intact, warm, normal turgor - Routine Neurological Exam Present: alert, oriented X3, CN II-XII intact - Routine Psychiatric Exam Present: normal affect, cooperative Progress Note: A&P (1) Status post below knee amputation of right lower extremity Status: Acute Assessment and plan: Reviewed the findings and progress with the patient. I also reviewed the microbiology results and recommend continuation of IV ertapenem. Plan for discharge tomorrow with continuation of IV antibiotics at home for 5 more days. We would also change the dressings tomorrow before she is discharged. Current Visit: Yes
--- NOTE | 2017-06-17 15:22 | P.PN_ITS ---
Subjective Date: 06/17/17 Time: 12:45 Principal diagnosis: Postoperative infection right BKA stump Interval history: Patient says she is doing well and reports improvement from yesterday. She is 3 days status post wound debridement/washout for infected right BKA stump. No history of any fevers, chills or rigors. She is eating and drinking well. PN: Obj Ex Vital signs: Temp Pulse Resp BP Pulse Ox 97.7 F 76 18 144/76 100 06/17/17 08:25 06/17/17 09:39 06/17/17 08:25 06/17/17 08:25 06/17/17 08:25 Narrative: Laboratory Results - last 24 hr 06/16/17 16:22: POC Glucose 134 06/16/17 20:44: POC Glucose 155 06/17/17 05:58: POC Glucose 108 06/17/17 08:30: WBC 7.0, RBC 3.43 L, Hgb 8.8 L, Hct 28.3 L, MCV 82.5, MCH 25.6 L , MCHC 31.1 L, RDW 16.3, Plt Count 280, MPV 7.5, Neut % (Auto) 65.4, Lymph % ( Auto) 23.8, [place] % (Auto) 5.1, Eos % (Auto) 5.1, Baso % (Auto) 0.6, Neut # (Auto ) 4.6, Lymph # (Auto) 1.7, [place] # (Auto) 0.4, Eos # (Auto) 0.4, Baso # (Auto) 0.0 06/17/17 11:06: POC Glucose 122 Microbiology 06/14/17 13:43 Leg,Right Gram Stain - Final 06/14/17 13:43 Leg,Right Wound Culture - Final Klebsiella oxytoca Morganella morganii I have reviewed the sensitivities and both these organisms are sensitive to only cefepime, ertapenem and piperacillin/tazobactam. At the moment, she is receiving 1 g of IV ertapenem daily. - Constitutional no acute distress - Routine HEENT Exam Eye: Present: EOMI, PERRL ENT: Present: mucous membranes moist - Routine Respiratory Exam Present: CTA bilaterally - Routine Cardiovascular Exam Present: RRR, Normal S1, Normal S2 - Routine Abdominal Exam Present: soft, normoactive bowel sounds - Routine Extremities Exam Comments: On examination of her right lower extremity, the dressings over the BKA stump are clean dry and intact. She has good range of active knee movements. - Routine Skin Exam Present: intact, warm, normal turgor - Routine Neurological Exam Present: alert, oriented X3, CN II-XII intact - Routine Psychiatric Exam Present: normal affect, cooperative Progress Note: A&P (1) Status post below knee amputation of right lower extremity Status: Acute Assessment and plan: Reviewed the findings and progress with the patient. I also reviewed the microbiology results and recommend continuation of IV ertapenem. Plan for discharge tomorrow with continuation of IV antibiotics at home for 5 more days. We would also change the dressings tomorrow before she is discharged. Current Visit: Yes
[2017-06-17 16:53] LABS: POC Glucose,Bedside 103 mg/dL (70-110)
--- NOTE | 2017-06-17 17:01 | DIET.NUTRFU ---
Pt appetite excellent with PO intake 100% at all meals. Pt blood glucose is improved. POC glucose running at 108, 122, and 103. Will continue to monitor blood glucose. Pt may benefit from diabetic restrictions added to diet while admitted.
--- NOTE | 2017-06-17 17:59 | PC.NURSE ---
Patient laying in bed resting at time of this documentation. Pt has chronic pain of (R)LE and consistently rates this pain 10/15. Pt medicated per JUN. Pt has not requested any breakthrough pain medications. Has been up to BSC independently. Encouraged to use IS and deep breathing exercises to promote lung expansion and assist in prevention of PNA. Lungs CTA. Heart rate reg. Pt denies c/o at time of this documentation. Pt requested IV to be saline locked and remain in place until tomorrow. Bed in low position, side rails up x 2. Call light within reach. Will continue to monitor.
--- NOTE | 2017-06-17 18:01 | P.PN_ITS ---
Internal Medicine - PN: Subj *Date: 06/17/17 *Time: 18:00 Interval history: doing better Exam Vital signs and Labs for Last 24 Hours: Temp Pulse Resp BP Pulse Ox 97.8 F 60 18 123/61 95 06/17/17 16:00 06/17/17 16:00 06/17/17 16:00 06/17/17 16:00 06/17/17 16:00 Laboratory Results - last 24 hr 06/16/17 20:44: POC Glucose 155 06/17/17 05:58: POC Glucose 108 06/17/17 08:30: WBC 7.0, RBC 3.43 L, Hgb 8.8 L, Hct 28.3 L, MCV 82.5, MCH 25.6 L , MCHC 31.1 L, RDW 16.3, Plt Count 280, MPV 7.5, Neut % (Auto) 65.4, Lymph % ( Auto) 23.8, [place] % (Auto) 5.1, Eos % (Auto) 5.1, Baso % (Auto) 0.6, Neut # (Auto ) 4.6, Lymph # (Auto) 1.7, [place] # (Auto) 0.4, Eos # (Auto) 0.4, Baso # (Auto) 0.0 06/17/17 11:06: POC Glucose 122 06/17/17 16:25: POC Glucose 103 I & O for Last 24 hours: Intake & Output 06/15/17 06/16/17 06/17/17 06/18/17 10:59 11:59 11:59 11:59 Intake Total 4431 / 4431 585 / 585 Output Total 1100 / 1100 Balance 3331 / 3331 585 / 585 Weight 234 lb 3.999 oz Microbiology Reports for the Last 24 Hours: Microbiology 06/14/17 13:43 Leg,Right Gram Stain - Final 06/14/17 13:43 Leg,Right Wound Culture - Final Klebsiella oxytoca Morganella morganii - Constitutional no acute distress - *Routine HEENT Exam Head: Present: normocephalic Eye: Present: EOMI, PERRL ENT: Present: mucous membranes dry - *Routine Neck Exam Absent: JVD - *Routine Respiratory Exam Present: CTA bilaterally - *Routine Cardiovascular Exam Present: RRR - *Routine Abdominal Exam Present: soft - *Routine Extremities Exam Comments: s/p surg on amputation site - *Routine Skin Exam Present: intact - *Routine Neurological Exam Present: alert, oriented X3 - Routine Psychiatric Exam Present: normal affect Assessment and Plan (1) Status post below knee amputation of right lower extremity Current visit: Yes Status: Acute Category: Surgical Code(s): Z89.511 - Acquired absence of right leg below knee
--- NOTE | 2017-06-17 19:02 | PC.NURSE ---
Report given to Alexandro Nix RN
[2017-06-17 21:33] LABS: POC Glucose,Bedside 137 mg/dL (70-110)
--- NOTE | 2017-06-18 01:59 | PC.NURSE ---
Addendum entered by Vira Nix RN 06/18/17 02:59: Late Entry: Have assessed pain on q 2 hour checks while awake. Patient Has only reported Pain one time this shift. Scheduled pain med was given. Has not request any prn Pain Medication when offered. Original Note: Patient is laying in bed at this time. Sat on isde of bed for hours on cell phone.Has denied pain since last pain medication administration. Lungs are clear, resp even and non labored. Last bm on 06-17-17. DSG on right stump c/d/i. IV is patent, refused iv fluids, stated drinking plenty. Has been up to bsc several times,urinated large volumes. See output. Plans per MD note is for patient to go home on 06-18-17 with 5 more days of antibiotics. Dsg to be changed before discharge. Patient has no needs at this time, bed locked in low position, side rails up x 2, call light within reach. Will continue to monitor.
[2017-06-18 03:50] VITALS: BP 153/66; PULSE 61; RESP 18; TEMP 37.1; O2SAT 99
[2017-06-18 06:22] LABS: POC Glucose,Bedside 225 mg/dL (70-110)
--- NOTE | 2017-06-18 07:25 | PC.NURSE ---
REPORT GIVEN TO Ayo LEO W/C
--- NOTE | 2017-06-18 07:50 | PC.NURSE ---
0715 - Report received from Alexandro Nix RN
[2017-06-18 08:00] VITALS: BP 145/66; PULSE 66; RESP 18; TEMP 36.7; O2SAT 98
[2017-06-18 08:33] VITALS: PULSE 62
--- NOTE | 2017-06-18 09:42 | HMH.ACPN ---
Internal Medicine - PN: Subj *Date: 06/18/17 *Time: 09:42 Exam Vital signs and Labs for Last 24 Hours: Temp Pulse Resp BP Pulse Ox 98.0 F 62 18 145/66 98 06/18/17 08:00 06/18/17 08:33 06/18/17 08:00 06/18/17 08:00 06/18/17 08:00 Laboratory Results - last 24 hr 06/17/17 11:06: POC Glucose 122 06/17/17 16:25: POC Glucose 103 06/17/17 20:11: POC Glucose 137 06/18/17 05:50: POC Glucose 225 I & O for Last 24 hours: Intake & Output 06/15/17 06/16/17 06/17/17 06/18/17 22:59 23:59 23:59 23:59 Intake Total 3027 / 3027 504 / 504 Output Total 1100 / 1100 1999 / 1999 Balance 1927 / 1927 -1496 / -1496 Weight Microbiology Reports for the Last 24 Hours: Microbiology 06/14/17 13:43 Leg,Right Gram Stain - Final 06/14/17 13:43 Leg,Right Wound Culture - Final Klebsiella oxytoca Morganella morganii Assessment and Plan (1) Status post below knee amputation of right lower extremity Current visit: Yes Status: Acute Category: Surgical Code(s): Z89.511 - Acquired absence of right leg below knee The patient's infection will respond to the chosen ABx?: Yes Is the patient receiving the right drug, dose, and route?: Yes Could a more targeted ABx be ordered?: No
[2017-06-18 11:02] LABS: POC Glucose,Bedside 116 mg/dL (70-110)
--- NOTE | 2017-06-18 14:34 | XR_ITS ---
XR chest portable PICC plac HISTORY: ITS.REASON: Confirm PICC line placement ORDERING PHYSICIAN: Kalen Kelly MD PATIENT AGE: 52 years COMPARISON: 05/15/2017 FINDINGS: Cardiomegaly. Prior median sternotomy. Right upper extremity PICC line has been inserted. The tip is in region superior vena cava. Study is somewhat technically limited. IMPRESSION: Right upper extremity PICC line tip is in region of the superior vena cava
--- NOTE | 2017-06-18 15:03 | SW/DCPLANNER ---
Addendum entered by Cary Quintanilla 06/18/17 16:40: Patients insurance will cover home IV antibiotics 100% and they will deliver medication to patients home this evening. I have also faxed patient information to [facility] to inform them that patient will be discharging home this evening and will need dose in the AM. I have also made patient aware of medication being delivered this evening and home health will arrive in the AM. Patient is discharging home this evening. Original Note: Order has been placed for patient to have Invanz 1gm daily x 10 days. I have faxed patient information to [facility] [employer] regarding patient order. I have also contacted Elvi at [facility] to update her regarding this patient. Bree from [facility] [employer] will follow up with me once patient information is reviewed. I will follow up with this patient this evening. At this time patient is planned to discharge home tomorrow 06/19/17.
--- NOTE | 2017-06-18 15:29 | HMH.ORTHPN ---
Subjective Date: 06/18/17 Time: 14:00 Principal diagnosis: Postoperative infection right BKA stump Interval history: She is seen today in conjunction with Dr. Vides. Dressing is changed and wound inspected. This appears improved per Dr. Vides. Still slight drainage. Dull ruborous color but no evident cellulitis. Wound is redressed. Patient is awaiting a PICC line. Culture and sensitivities reviewed and are consistent with staph epidermidis, E. coli, and Klebsiella....... we will plan on continuing on ertapenem at time of discharge. Anticipate discharge tomorrow after PICC line placed in morning. Dr. Vides and I have continued to emphasize to the patient how very important it is to control her diabetes and to STOP SMOKING!! This is been explained in no uncertain terms of the patient clearly understand it and voices back the importance of smoking cessation she voiced understanding that failure to do so may result in further amputation of the involved leg and also continues to advance peripheral vascular disease throughout her body PN: Obj Ex Vital signs: Temp Pulse Resp BP Pulse Ox 98.0 F 62 18 145/66 98 06/18/17 08:00 06/18/17 08:33 06/18/17 08:00 06/18/17 08:00 06/18/17 08:00 Progress Note: A&P (1) Status post below knee amputation of right lower extremity Status: Acute Current Visit: Yes - Time Spent With Patient 25 - 35 minutes
[2017-06-18 16:00] VITALS: BP 133/62; PULSE 60; RESP 18; TEMP 36.7
--- NOTE | 2017-06-18 16:32 | HMH.DCSUM ---
General - General Admission date: 06/14/17 Discharge date: 06/18/17 HPI HPI: this wf who has iddm has had recent bka amputation and is followed by pcp and ortho - she saw ortho and they wished to admit pt and do surg eval of wd - dr hollis with drains placed and see his op note- pt reports doing ok with her diet and diabetes but feels ill and has ongoing back pain and weakness - Hospital Course Hospital Course: pt did well and slow improvement with abx and pos culture and will be d/c on iv abx to finish 10 day course and has pic line seen today in conjunction with Dr. Hollis. Dressing is changed and wound inspected. This appears improved per Dr. Hollis. Still slight drainage. Dull ruborous color but no evident cellulitis. Wound is redressed. Patient is awaiting a PICC line. Culture and sensitivities reviewed and are consistent with staph epidermidis, E. coli, and Klebsiella....... we will plan on continuing on ertapenem at time of discharge. Anticipate discharge tomorrow after PICC line placed in morning. Dr. Hollis and I have continued to emphasize to the patient how very important it is to control her diabetes and to STOP SMOKING!! This is been explained in no uncertain terms of the patient clearly understand it and voices back the importance of smoking cessation she voiced understanding that failure to do so may result in further amputation of the involved leg and also continues to advance peripheral vascular disease throughout her body Objective Vital signs: Temp Pulse Resp BP Pulse Ox 98.0 F 60 18 133/62 98 06/18/17 16:00 06/18/17 16:00 06/18/17 16:00 06/18/17 16:00 06/18/17 08:00 no acute distress - *Routine HEENT Exam Head: Present: normocephalic Eye: Present: EOMI, PERRL ENT: Present: mucous membranes dry - *Routine Neck Exam Present: supple - *Routine Respiratory Exam Absent: respiratory distress - *Routine Abdominal Exam Present: soft - *Routine Extremities Exam Comments: see ortho note - *Routine Skin Exam Present: dry - *Routine Neurological Exam Present: alert, oriented X3, CN II-XII intact - Routine Psychiatric Exam Present: normal affect Results Labs on day of discharge: Labs from last 24 hours 06/18/17 06/18/1718 10:42 05:50 20:11 POC Glucose 116 225 137 06/17/17 16:25 POC Glucose 103 DS: Diagnosis - Discharge Diagnosis (1) Status post below knee amputation of right lower extremity Status: Acute (2) Cellulitis Status: Acute (3) IDDM (insulin dependent diabetes mellitus) Status: Chronic (4) Obesity Status: Chronic (5) Renal insufficiency Status: Chronic (6) Anemia Status: Acute Discharge Plan - Patient Discharge Instructions ACTIVITY: Continue current activity DIET: continue same diet Patient Instructions: DI for [id number] Amputation, Peripherally Inserted Central Catheter, DI for Surgical Site Infection - Follow up Plan Disposition: Home, Self-Detention Medications: Home Medications Medication Instructions Recorded Confirmed Type aspirin 81 mg tablet,delayed 81 mg PO DAILY 04/05/17 06/14/17 History release clopidogrel 75 mg tablet 75 mg PO DAILY 04/05/17 06/14/17 History digoxin 125 mcg tablet 125 mcg PO DAILY 04/05/17 06/14/17 History metoprolol tartrate 25 mg tablet 25 mg PO BID 04/05/17 06/14/17 History Baclofen [Lioresal 10mg tablet] 10 mg PO TID 06/06/17 06/14/17 History Insulin Glargine,Hum.rec.anlog 45 unit SQ BID 06/06/17 06/14/17 History [Lantus Insulin 100units/mL 10mL vial] Insulin Lispro [Humalog] 0 unit SQ TID PRN MDD sliding scale 06/06/17 06/14/17 History Ondansetron [Zofran 4mg ODT] 4 mg PO TID 06/06/17 06/14/17 History Prescriptions/Medication Reconciliation: Continue digoxin 125 mcg tablet 125 mcg PO DAILY metoprolol tartrate 25 mg tablet 25 mg PO BID clopidogrel 75 mg tablet 75 mg PO DAILY gabapentin 600 mg
[2017-06-18 16:57] LABS: POC Glucose,Bedside 79 mg/dL (70-110)
--- NOTE | 2017-06-18 16:59 | PC.NURSE ---
Pt instructed on discharge instructions to include, meds, and patient teaching on DI BKA and PICC line. Pt instructed to call Dr Kelly and Dr Vides in AM to make follow up appointments. Pt instructed NO BP or NEEDLESTICKS on (R) arm. Pt verbalizes understanding. Insulin pen given to patient. Supplies for PICC line drsg change and wound care dressing supplies given to patient.
--- NOTE | 2017-06-19 15:27 | SW/DCPLANNER ---
Spoke with Kayla from [facility] and read off verbal order for dressing changes. Kayla did see this patient this afternoon to administer Invanz.
== END 2017-06-18 17:02 | disposition home or self-care (01) | DRG 464 ==
LOC: 2ND 11:19
PROVIDERS: Admitting Provider Emergency Medicine; PCP Emergency Medicine; Referring Provider Orthopaedic Surgery; Visit Provider Emergency Medicine
PROC: 0JBN0ZZ Excision of Right Lower Leg Subcutaneous Tissue and Fascia, Open Approach (ICD-10-PCS; principal; 2017-06-14 12:15)
DX: T87.81 Dehiscence of amputation stump (principal); I70.261 Atherosclerosis of native arteries of extremities with gangrene, right leg; E11.22 Type 2 diabetes mellitus with diabetic chronic kidney disease; L03.115 Cellulitis of right lower limb; B96.4 Proteus (mirabilis) (morganii) as the cause of diseases classified elsewhere; T87.43 Infection of amputation stump, right lower extremity; B96.1 Klebsiella pneumoniae [K. pneumoniae] as the cause of diseases classified elsewhere; J44.9 Chronic obstructive pulmonary disease, unspecified; I25.10 Atherosclerotic heart disease of native coronary artery without angina pectoris; Z79.4 Long term (current) use of insulin; I25.2 Old myocardial infarction; I70.201 Unspecified atherosclerosis of native arteries of extremities, right leg; I12.9 Hypertensive chronic kidney disease with stage 1 through stage 4 chronic kidney disease, or unspecified chronic kidney disease; N18.9 Chronic kidney disease, unspecified; Z72.0 Tobacco use
CPT/HCPCS: 36569; 11043; 36415; 71045; 80048; 80053; 82962; 84703; 85025; 87070; 87077; 87186; 87205; 96374; C1751; J0131; J1335; J2405

== ENCOUNTER → 2017-07-03 16:03 | Outpatient (CLI) | payer OTHER, SELFPAY ==
[2017-07-03 16:31] LABS: Basophils # 0.1 K/mm3 (0-0.2); Basophils % 0.7 % (0.1-2.0); Eosinophils # 0.4 K/mm3 (0.0-0.4); Eosinophils % 3.5 % (0.1-12.0); Hematocrit 34.2 % (37.0-47.0); Hemoglobin 10.9 g/dL (12.2-16.2); Lymphocytes # 2.5 K/mm3 (0.7-4.5); Lymphocytes % 25.2 K/mm3 (10-50); Mean Corpuscular Volume 78.1 fl (81-99); Mean Platelet Volume 7.2 fl (7.4-10.4); Monocytes # 0.4 K/mm3 (0.1-1.0); Monocytes % 4.1 % (1.7-9.3); Neutrophils # 6.6 K/mm3 (1.8-7.8); Neutrophils % 66.5 % (37.0-80.0); Platelet Count 359 K/mm3 (142-424); Red Blood Count 4.38 M/mm3 (4.20-5.40); Red Cell Distribution Width 15.5 % (11.5-17.5)
[2017-07-03 19:27] LABS: Anion Gap 14.6 mEq/L (5-15); Blood Urea Nitrogen 22 mg/dL (7-18); Carbon Dioxide 22 mmol/L (21.0-32.0); Chloride 101 mmol/L (98-107); Creatinine,Serum 1.01 mg/dL (0.55-1.02); Estimated Glomerular Filt Rate 58 ml/min (>60); GFR (African American) 70 ML/MIN (>60); Glucose 90 mg/dL (74-106); Sodium 133 mmol/L (136-145)
[2017-07-03 19:37] LABS: Potassium 4.6 mmoL/L (3.5-5.1)
== END ==
PROVIDERS: Visit Provider Orthopaedic Surgery
DX: Z01.818 Encounter for other preprocedural examination (principal); L03.115 Cellulitis of right lower limb; Z89.511 Acquired absence of right leg below knee; E11.9 Type 2 diabetes mellitus without complications; Z79.4 Long term (current) use of insulin
CPT/HCPCS: 36415; 80048; 85025

== ENCOUNTER 2017-07-08 12:56 | Observation (INO) | payer OTHER, SELFPAY ==
[2017-07-05 13:34] VITALS: BMI 90.7
[2017-07-08] VITALS (24 sets, daily range): BP systolic 108–172; BP diastolic 58–90; PULSE 63–89; RESP 16–20; TEMP 36.3–43; O2SAT 92–98; BMI 41.2
--- NOTE | 2017-07-08 09:42 | P.PN_ITS ---
[facility] Anesthesia Checklist - Patient Identification Patient Identification: Arm Band, Verbal (Name & ) - Structural Data Admitted From: Home Planned Operative Procedure/s: i and d right bka Consent for Planned Operative Procedure(s) Verified: Yes Verified Documents: Surgical Consent, History and Physical - NPO Status Verified Time NPO: 00:00 - Chart Verification Results Verified: CBC, BMP - Additional verifications Patient : No Anesthesia Reactions: No Hx Blood Transfusions: No Blood Transfusion Reaction: No Cephalosporin Allergy: No Previous Colonoscopy: No - Cardiovascular Assessment Heart Sounds: S1 & S2 Pulse Strength: Baseline Pulse Rhythm: Regular Peripheral Edema: No - Airway Assessment TMJ Mobility Assessed: Yes Dentition: Poor Dentition - Neurological Assessment Level of Consciousness: Awake, Alert, Appropriate Hx Seizures: No Numbness or tingling in extremities: No - Anesthesia Plan Anesthesia Risk discussed: Yes Anesthesia Plan: Verified ASA Class: III Anesthesia Type: General [facility] Anesthesia HX I have reviewed the patient's past medical history: Yes Medical History: Reports:: Chronic Obstructive Pulmonary Disease (COPD), Coronary Artery Disease, Diabetes Mellitus Type 2, Hyperlipidemia, Hypertension , MRSA (foot), Myocardial Infarction, Renal Disease, Renal Insufficiency, Valvular Heart Disease Denies:: Cancer, Diabetes Mellitus Type 1, Internal Pacemaker, Seizures Other Medical History: Denies: Blood Transfusion Reaction Laterality Cases: Right: Other Other Surgeries: Yes: Angioplasty, CABG, Coronary Stent, Other. No: Pacemaker Amputation: Yes (rt bka) Fractures: No *Family Hx:: Anemia, Bleeding Disorder, Cancer, Coronary Artery Disease, Diabetes, Heart Attack, Hypertension, Kidney Disease, Stroke
[2017-07-08 09:46] LABS: POC Glucose,Bedside 119 mg/dL (70-110)
--- NOTE | 2017-07-08 09:51 | SUR.PREOP ---
Addendum entered by Ree Huntley RN 07/08/17 09:54: clearance recieved-placed on chart 07/08/17@0954 Original Note: Addendum entered by Ree Huntley RN 07/08/17 09:52: [id number] for cardiac clearance again @0935 spoke w/lucía in clinic per david nguyen Original Note: requested cardiac clearance on 07/05/17 At 1410 spoke w/ lucía in clinic, may stop clopidigrel per tahira brown will send clearance.07/05/17
[2017-07-08 09:54] LABS: HCG Qualitative, Serum Negative (Negative)
--- NOTE | 2017-07-08 11:51 | P.PN_ITS ---
[facility] Anesthesia Record Part I Intake, IV Amount: 700 Estimated blood loss (mL): 20 Urine output (mL): 50 Blood Products used (#): none Blood Pressure: 172/90 SaO2: 95 Pulse Rate: 78 Respiratory Rate: 20 Temperature: 97.6 F Patient is:: Awake, Stable Stable to PACU at:: 11:45
--- NOTE | 2017-07-08 11:51 | HMH.ANESII ---
[facility] Anesthesia Record Part II Discharge Time: 12:15 Destination: Medical Surgical Department PACU nurse assessment reviewed?: Yes Patient Condition:: Good Anesthesia Complications:: None
[2017-07-08 12:25] LABS: POC Glucose,Bedside 130 mg/dL (70-110)
--- NOTE | 2017-07-08 13:32 | PC.NURSE ---
1155-Pt rates pain to right knee area 9/10 and describes as burning. Pt being medicated per MAR for pain. PT eating ice chips w/out difficulty. Denies nausea. IPC on and going to LLE only. Applied ice pack at this time in attempt to help w/pain relief. Pt stable.
--- NOTE | 2017-07-08 13:36 | PC.NURSE ---
1205-Anesthesia at bedside. Medicating for pain as ordered per MAR/DENTAL DIRECTOR. Pt reports pain/burning minimally easing. Continues to eat ice chips w/out difficulty. Pt stable.
--- NOTE | 2017-07-08 13:40 | PC.NURSE ---
121Todd- at bedside. No further orders at this time. Pt reports pain minimally easing. Pt moving stump as tolerated to assist w/pain relief, ice pack in place as well. Checked fsbs with results of 130. Pt continues to eat ice chips w/out difficulty. Pt stable.
--- NOTE | 2017-07-08 13:45 | PC.NURSE ---
1225-Detailed report called to RAEGAN Valle on 2nd floor. Pt appears to be resting easier and reports pain is beginning to ease to rt knee area. Pt denies nausea. VSS. Pt stable.
--- NOTE | 2017-07-08 13:46 | SUR.PHASEI ---
1230-PT transported to 2nd floor Room 212 via hospital bed w/rails up and left in care of RAEGAN Valle with bed locked in lowest position. VSS. Pt transported on room air and 2L/nc re-applied upon arrival to room, pt nadya well. PT stable.
--- NOTE | 2017-07-08 14:54 | SUR.OPER ---
Pt did not receive pre operative antibiotic per MD, as pt receives ertapenem daily per PICC line. Vancomycin beads placed in deep tissue during procedure as well.
--- NOTE | 2017-07-08 17:46 | HMH.PTEV ---
Physical Therapy Evaluation Rehab PT IP Evaluation Start: 07/08/17 13:21 Freq: ONCE Status: Complete Protocol: Document 07/08/17 17:06 DAVID (Rec: 07/08/17 17:46 DAVID [id number]) Subjective/History History History this is the initial PT evaluation for Mikayla Crow. Pt has BKA ~ 2 months ago, and had I&D then wash today Subjective Subjective no complaints from pt. Rehab PT IP Eval Objective Appearance Patient Behavior Appropriate Patient Orientation Person Place Time Difficulty following instructions none Speech Pattern Clear Ambulation Patient Able to Ambulate No Balance Ability to Arise Able, uses arms to help Sitting Balance Steady, safe Standing Balance Unsteady Dynamic Sitting Balance Ability Normal Dynamic Standing Balance Ability Poor Transfers Bed Transfer Ability Independent Supervision/Stand by Chair Transfer Ability Independent Supervision/Stand by Sit to Stand Bed Transfer Ability Independent Supervision/Stand by Sit to Stand Chair Transfer Ability Independent Supervision/Stand by ROM All Extremities PT ROM Status WFL Abnormal ROM Comment no RLE ankle MMT All Extremities PT MMT WFL Abnormal MMT Grade no RLE ankle Rehab PT IP prob,goals,plan Problems Date of Evaluation: 07/08/17 Rehab Potential Rehab Potential Innapropriate for Skilled Therapy Plan Other Intervention Plan PT instructed on safe and proper use of walker Discharge Plan PT Discharge Plan pt to return home G -code Required Yes Eval Complexity Eval Charge Codes 20442 - Low Complexity G Codes PT Current Status Mobility PT Current Status Modifier CJ-At least 20% but less than 40% impaired, limited or restricted PT Goal Status Mobility PT Goal Status Modifer CJ-At least 20% but less than 40% impaired, limited or restricted PHYSICIAN CERTIFICATION: I certify the specified therapy services for Mikayla Crow are required, authorized, and reviewed every 30 days.
--- NOTE | 2017-07-08 18:11 | PC.NURSE ---
PATIENT ADMITTED TODAY AFTER A I&D OF HER RIGHT STUMP. PATIENT COMPLAINING OF PAIN CONTINUOUSLY SINCE COMING TO UNIT, PAIN MEDS GIVEN ORDERED. PATIENT REFUSED HER IV FLUIDS. PT WORKED WITH PATIENT FOR WALKER TRAINING. ICE PACK TO RIGHT STUMP, BUT PATIENT REMOVES IT. WILL CONTINUE TO MONITOR.
--- NOTE | 2017-07-08 18:46 | SW/DCPLANNER ---
Visited this patient this afternoon regarding discharge plans. Patient has stated that she is doing well at home with home health. I will contact [employer] [facility] in the AM and let agency know patient is in [facility] and discharge date is known in the AM. During last hospital admission I presented patient with phone numbers to [facility] for [facility]. Patient has stated during this stay that she did NOT contact different [facility] phone numbers presented to patient because she knows there is a one-two year waiting list. I will follow up with this patient in the AM to assist with any needs/new orders. Patient intends on returning back home once ready for discharge.
--- NOTE | 2017-07-08 19:14 | PC.NURSE ---
REPORT GIVEN TO COLBY CARLIN
--- NOTE | 2017-07-08 19:22 | PC.NURSE ---
report given to nelson
[2017-07-09] VITALS: BP 128/80; PULSE 64; RESP 18; TEMP 36.4; O2SAT 98
--- NOTE | 2017-07-09 03:25 | PC.NURSE ---
Patient laying in bed resting at this time. Has Been awake most of shift sitting on side of bed. Has ask for every prn pain medication available to her. States nothing seems to help much. States she should has stayed home and not come to this hospital. RN has given Meds as ordered. Lungs are clear, resp even and non labored. Abd soft and non tender. positive bowel sounds x 4. Encouraged pt to elevate stump on pillow. Very Noncompliant. Picc line is patent. Encouraged to call out for any needs. Education given over pain meds. Bed locked in low position, side rails up x 2, call light within reach. Will Continue to monitor.
[2017-07-09 03:47] VITALS: BP 149/70; PULSE 69; RESP 20; TEMP 37.1; O2SAT 94
[2017-07-09 07:29] VITALS: BP 129/63; PULSE 70; RESP 18; TEMP 36.9; O2SAT 96
[2017-07-09 11:22] VITALS: BP 139/71; PULSE 75; RESP 20; TEMP 37.2; O2SAT 96
--- NOTE | 2017-07-09 13:22 | SW/DCPLANNER ---
I have contacted [facility] to inform them this patient will be discharging home this afternoon. I will fax patient discharge summary once available.
--- NOTE | 2017-07-09 16:05 | HMH.OPNOTE ---
Date of procedure: 07/08/17 Pre-op Diagnosis:: wound dehiscence R BKA stump infection R BKA stump Post-op Diagnosis:: same Procedure performed:: Irrigation and debridement not right BKA stump Surgeon:: Jefferson Blackburn MD RECEIVER:: Other Anesthesia: LMA Estimated blood loss (mL): 20 Operative findings:: Intraoperative findings showed no overt purulence. There was adequate blood flow to the muscles and no nonviable muscle tissue was encountered. Cultures were taken ?2 for cultures and sensitivities both aerobic and anaerobic. Operative note:: The patient was taken to the operating room placed in the supine position all bony prominences well-padded. A tourniquet was not utilized. After prepping and draping in the usual sterile fashion, previously placed retention sutures were removed and the central area of the wound explored. Superficial culture specimens were taken followed by deep cultures. We irrigated and explored for pockets. Fibrinous exudate was cleared from the muscles using a large curette and a Dawkins elevator. Bleeding was encountered from the muscles at this point. The neurovascular bundles remained intact and secured with ligatures. Nonviable skin 16 centimeters long was excised anteriorly and approximately 10 cm posteriorly we used Osteoboost by [employer] as a carrier agent and mixed vancomycin with it per the [place] protocol. We then press these into beads as well as made a cylinder for placement inside the medullary canal of the tibia. We removed exudate from the end of the tibia using a Dawkins elevator, made a small canal entry using a quarter-inch osteotome, and place the intramedullary antibiotic impregnated aleksander up inside of it. The osteoboost itself is bio compatible and will incorporate with bone and does not need specific removal. Following this, we irrigated yet again and began closure. Deep closure was with 0 PDS sutures to bring the posterior muscles to the anterior fascia. We then followed with PDS for subcutaneous sutures and #1 Prolene vertical mattress sutures for skin closure. No drains were placed. Dressings were applied the patient awakened and transported to the PACU in good condition. Condition: stable Disposition: PACU Specimens:: Cultures and sensitivity specimens ?2 for aerobic anaerobic specimens taken Complications:: None
--- NOTE | 2017-07-09 16:12 | P.OP_ITS ---
Date of procedure: 07/08/17 Pre-op Diagnosis:: wound dehiscence R BKA stump infection R BKA stump Post-op Diagnosis:: same Procedure performed:: Irrigation and debridement not right BKA stump Surgeon:: Jefferson Blackburn MD SENIOR RISK MANAGER:: Other Anesthesia: LMA Estimated blood loss (mL): 20 Operative findings:: Intraoperative findings showed no overt purulence. There was adequate blood flow to the muscles and no nonviable muscle tissue was encountered. Cultures were taken ?2 for cultures and sensitivities both aerobic and anaerobic. Operative note:: The patient was taken to the operating room placed in the supine position all bony prominences well-padded. A tourniquet was not utilized. After prepping and draping in the usual sterile fashion, previously placed retention sutures were removed and the central area of the wound explored. Superficial culture specimens were taken followed by deep cultures. We irrigated and explored for pockets. Fibrinous exudate was cleared from the muscles using a large curette and a Dawkins elevator. Bleeding was encountered from the muscles at this point. The neurovascular bundles remained intact and secured with ligatures. Nonviable skin 16 centimeters long was excised anteriorly and approximately 10 cm posteriorly we used Osteoboost by [employer] as a carrier agent and mixed vancomycin with it per the [place] protocol. We then press these into beads as well as made a cylinder for placement inside the medullary canal of the tibia. We removed exudate from the end of the tibia using a Dawkins elevator, made a small canal entry using a quarter-inch osteotome, and place the intramedullary antibiotic impregnated aleksander up inside of it. The osteoboost itself is bio compatible and will incorporate with bone and does not need specific removal. Following this, we irrigated yet again and began closure. Deep closure was with 0 PDS sutures to bring the posterior muscles to the anterior fascia. We then followed with PDS for subcutaneous sutures and #1 Prolene vertical mattress sutures for skin closure. No drains were placed. Dressings were applied the patient awakened and transported to the PACU in good condition. Condition: stable Disposition: PACU Specimens:: Cultures and sensitivity specimens ?2 for aerobic anaerobic specimens taken Complications:: None
--- NOTE | 2017-07-09 16:13 | HMH.DCTXFX ---
Discharge/Transfer - Discharge Disposition: Home Health Service Condition: Good - Plan of Care Resident has been informed of condition and prognosis?: Yes Mobility Status: wheelchair Goal of treatment:: Resolve infection in the right below-knee amputation stump Rehab Potential: Fair I concur with the most recent H & P: Yes Date of most recent H & P: 07/08/17 Certification: I have reviewed and agree with this resident's plan of care. I certify that post-hospital nursing home facility services are required to be given on an inpatient basis because of the need for nursing home care on a continuing basis for the condition(s) for which he/she is receiving inpatient hospital services prior to admission to swing bed. I also certify that the resident meets existing SNF level of care definition.
--- NOTE | 2017-07-09 16:15 | HMH.ORTHPN ---
Subjective Date: 07/09/17 Time: 09:00 Principal diagnosis: R BKA stump dehiscence and infxn. Interval history: Patient underwent irrigation, incision, debridement of right BKA stump dehiscence and infection yesterday. She tolerated this well. She remained stable throughout the night. Pain was adequately controlled on oral analgesics after initial IV morphine was utilized. She was partaking a regular diet at time of discharge. Dressing was changed prior to discharge. DISCHARGE RECOMMENDATIONS--patient states she is now smoking approximately one half pack per day after initially insisting she was down to 2-3 per day. We have repeated again and again how very important it is for her to stop smoking. We have utilize nicotine patches while in the hospital and we have strongly urged her to seek educational guidance counselor from her primary care physician. I also explained to her how important it is for her not to fall again. She has approximately 4 recorded falls/mishaps, some of which have caused wound dehiscence. She is currently on ertapenem 1 g daily. Would like to continue this through the PICC line. I have also counseled her at length that the PICC line is for the IV medication only and not to be used for any recreational purposes. I believe her prognosis is only fair due to self-imposed problems such as poor diabetes control, smoking, falling. I have also yet again recommended a rehabilitation center which the patient continues to refuse. PN: Obj Ex Vital signs: Temp Pulse Resp BP Pulse Ox 98.9 F 75 20 139/71 96 07/09/17 11:22 07/09/17 11:22 07/09/17 11:22 07/09/17 11:22 07/09/17 11:22
== END 2017-07-09 13:35 | disposition home health service (06) ==
LOC: 2ND 07-09 06:52
PROVIDERS: Admitting Provider Orthopaedic Surgery; PCP Emergency Medicine; Visit Provider Orthopaedic Surgery
PROC: (CPT 97597; principal; 2017-07-08 10:00)
DX: T87.43 Infection of amputation stump, right lower extremity (principal); T87.81 Dehiscence of amputation stump; F17.210 Nicotine dependence, cigarettes, uncomplicated; J44.9 Chronic obstructive pulmonary disease, unspecified; I25.10 Atherosclerotic heart disease of native coronary artery without angina pectoris; E11.9 Type 2 diabetes mellitus without complications; I10 Essential (primary) hypertension; I25.2 Old myocardial infarction; Z95.1 Presence of aortocoronary bypass graft; Z91.81 History of falling; Z86.14 Personal history of Methicillin resistant Staphylococcus aureus infection; Z95.5 Presence of coronary angioplasty implant and graft; Z83.2 Family history of diseases of the blood and blood-forming organs and certain disorders involving the immune mechanism; Z80.9 Family history of malignant neoplasm, unspecified; Z82.49 Family history of ischemic heart disease and other diseases of the circulatory system; Z83.3 Family history of diabetes mellitus; Z82.3 Family history of stroke
CPT/HCPCS: 97597; 82962; 84703; 87070; 87205; 97161; A4649; G0378; J1335; J2405; J3370

== ENCOUNTER 2017-08-06 11:58 | Outpatient (CLI) | payer OTHER, SELFPAY | END 2017-08-06 12:11 | disposition home or self-care (01) | LOC: INF 11:58 | PROVIDERS: PCP Emergency Medicine; Visit Provider Orthopaedic Surgery | DX: Z45.2 Encounter for adjustment and management of vascular access device (principal); Z89.511 Acquired absence of right leg below knee | CPT/HCPCS: G0463 ==

== ENCOUNTER → 2017-12-10 14:10 | Outpatient (REF) | payer OTHER, SELFPAY ==
[2017-12-10 18:02] LABS: Amphetamine/Metha Screen,Urine Negative ng/mL (<1000); Barbiturates Screen,Urine Negative ng/mL (<200); Benzodiazepines Screen,Urine Negative ng/mL (<200); Cannabinoid Screen,Urine Negative ng/mL (<50); Cocaine Screen,Urine Negative ng/mL (<300); Methadone Screen,Urine Negative ng/mL (<300); Opiate Screen,Urine Negative ng/mL (<300); Phencyclidine Screen,Urine Negative ng/mL (<25)
== END ==
LOC: LAB 14:10
PROVIDERS: Visit Provider Nurse Practitioner Family
DX: Z79.899 Other long term (current) drug therapy (principal)
CPT/HCPCS: 80305

== ENCOUNTER → 2018-02-06 17:59 | Outpatient (CLI) | payer OTHER, SELFPAY ==
[2018-02-06 20:30] LABS: Amphetamine/Metha Screen,Urine Negative ng/mL (<1000); Barbiturates Screen,Urine Negative ng/mL (<200); Benzodiazepines Screen,Urine Negative ng/mL (<200); Cannabinoid Screen,Urine Negative ng/mL (<50); Cocaine Screen,Urine Negative ng/mL (<300); Methadone Screen,Urine Negative ng/mL (<300); Opiate Screen,Urine Negative ng/mL (<300); Phencyclidine Screen,Urine Negative ng/mL (<25)
== END ==
PROVIDERS: Visit Provider Nurse Practitioner Family
DX: Z79.899 Other long term (current) drug therapy (principal)
CPT/HCPCS: 80305